=== PATIENT | male | born 1960 | race Caucasian/White ===

== ENCOUNTER 2016-11-04 09:06 | Inpatient (IN) ==
--- NOTE | 2016-11-04 09:06 | Pre-Sedation Evaluation ---
Pre-sedation evaluation - Pre-sedation checklist Date of procedure: 11/04/16 Procedure: [facility] Recent Vitals: as documented in EMR H&P (including ROS) documented in medical record: Yes Previous reaction to sedatives/anesthetics: No Dietary Status: unknown Airway Assessment: Patient can open mouth completely, TMJ function normal ASA Classification *see protocol: CLASS II-Mild systemic disease, E-EMERGENCY- Add to any of the above to indicate emergent Plan of Care: Pt appropriate candidate for procedure/moderate/conscious sedation , Risks/benefits of procedure/sedation discussed w/ patient/family, If not NPO; Risk of intake outweiged by necessity to perform procedure
--- NOTE | 2016-11-04 09:07 | Cardiology History & Physical ---
Date of Encounter: 11/04/16 Time of Encounter: 09:00 Assessment and Plan (1) STEMI (ST elevation myocardial infarction) Current Visit: Yes Status: Acute Emergent C to delineate any coronary disease amenable to PCI. Aspirin given, patient takes plavix. EF assessment will be completed. RF modification and aggressive medical therapyof patient's disease. The assessment and plan as outlined above was discussed with the patient and/or family members who expressed understanding and agreement. All questions were answered. Qualifiers: Involved coronary artery: other anterior wall coronary artery Qualified Code(s): I21.09 - ST elevation (STEMI) myocardial infarction involving other coronary artery of anterior wall (2) HTN (hypertension) Current Visit: Yes Status: Acute Continue home meds. The assessment and plan as outlined above was discussed with the patient and/or family members who expressed understanding and agreement. All questions were answered. Qualifiers: Hypertension type: essential hypertension Qualified Code(s): I10 - Essential (primary) hypertension (3) Nicotine dependence Current Visit: Yes Status: Acute The assessment and plan as outlined above was discussed with the patient and/or family members who expressed understanding and agreement. All questions were answered. Qualifiers: Nicotine product type: cigarettes Substance use status: uncomplicated Qualified Code(s): F17.210 - Nicotine dependence, cigarettes, uncomplicated History of Present Illness HPI: Mr. Pritchard is a 56 year old male with history of CAD s/p STEMI 06/2013 s/p PCI BMS LCx presents to office with intermittent chest pain x 1 week worse today. He was found to have anteroseptal current of injury and STEMI page was activated , he was emergently brought to the cardiac cath technician for definitive therapy. He has no diaphoresis, dyspnea or palpitations. Last plavix dose reportedly last night. Past Med Surg Social Fam HX - Past Medical History Medical history: GERD, myocardial infarction Psychiatric history: no psych history - Past Surgical History Surgical History: other (Bowel repair from trauma) - Social History Smoking Status: Former smoker Smokeless Tobacco Status: No Alcohol use: none Drug use: none Medications and Allergies Aspirin [Lo-Dose Aspirin EC] 81 mg PO DAILY 03/16/16 [History] Clopidogrel [Plavix] 75 mg PO DAILY 03/16/16 [History] Albuterol Sulfate [Proair Hfa] 2 puff IH Q4H PRN 11/04/16 [History] Atorvastatin [Lipitor] 40 mg PO HS 11/04/16 [History] Carvedilol 3.125 mg PO BID 11/04/16 [History] Famotidine [Pepcid] 40 mg PO HS 11/04/16 [History] Lisinopril [Zestril] 5 mg PO DAILY 11/04/16 [History] Nitroglycerin [Nitrostat] 0.4 mg SL AD PRN 11/04/16 [History] Ubidecarenone [Co Q10] 200 mg PO DAILY 11/04/16 [History] Allergies No Known Allergies Allergy (Verified 03/16/16 14:59) All Systems Review: A 10-system review of systems was performed and is negative for pertinent findings except as documented above in the HPI. - Constitutional Constitutional: no chills, no fever(s) - EENT Eyes: no blurred vision, no loss of vision Nose, mouth and throat: no bleeding gums, no epistaxis - Cardiovascular Cardiovascular: chest pain at rest, chest pain with exertion - Respiratory Respiratory: no hemoptysis, no wheezing - Gastrointestinal Gastrointestinal: no coffee ground emesis, no hematemesis - Genitourinary Genitourinary: no dysuria, no hematuria - Musculoskeletal Musculoskeletal: no arthralgias, no myalgias - Integumentary Integumentary: no erythema, no rash - Neurological Neurological: no focal weakness, no memory loss - Psychiatric Psychiatric: no anxiety, no depression - Hematological/Lymphatic Hematologic/Lymphatic: no easy bleeding, no easy bruising Physical Examination General: Conversant HEENT: Atraumatic, Normocephaly Neck: No JVD Cardiac: Reg Rate and Rhythm Lungs: Normal Breath Sounds Neuro: Alert and responsive Abdomen: Soft Skin: No rashes noted on visualized skin Musculoskeletal: No Chest Wall Tenderness Extremities: No Edema Results 11/04/16 09:43 - EKG Interpretation EKG results cardiology: personally reviewed, sinus rhythm (anterior current of injury)
[2016-11-04] MEDS ORDERED: *HR* Midazolam HCl 2 MG/2 ML VIAL ONE (09:08)
[2016-11-04] MEDS ORDERED: *HR* FentaNYL (PF) 100 MCG/2 ML VIAL ONE (09:09)
[2016-11-04] MEDS ORDERED: *HR* Heparin 5,000 UNIT/ML VIAL IVP PRN (09:52)
[2016-11-04] MEDS ORDERED: Ondansetron 4 MG/2 ML VIAL IVP PRN (09:52)
[2016-11-04] MEDS ORDERED: *HR* Heparin 5,000 UNIT/ML VIAL IVP ONE (09:52)
[2016-11-04] MEDS ORDERED: Heparin 25,000 UNIT/500 ML D5W 25,000 UNIT/500 ML MLS IVC ONE (09:58)
[2016-11-04] MEDS ORDERED: Nitroglycerin 0.4 MG TAB.SUBL SL PRN ×2 (09:59→10:13)
[2016-11-04 10:00] LABS: Basophils % 0.8 %; Eosinophils # 0.1 K/mcL (0.0-0.6); Eosinophils % 2.7 %; Hematocrit 36.4 % (37.5-50.1); Hemoglobin 12.2 g/dL (12.9-16.9); Immature Granulocytes % 0.2 % (0-4); Lymphocytes # 1.1 K/mcL (0.6-4.6); Lymphocytes % 22.5 %; Mean Corpuscular HGB Conc 33.5 g/dL (31.6-35.5); Mean Corpuscular Volume 86.5 fL (83.0-100.0); Mean Platelet Volume 9.6 fL (9.4-12.4); Monocytes # 0.4 K/mcL (0.0-1.3); Monocytes % 8.6 %; Neutrophils # 3.1 K/mcL (1.6-8.9); Platelet Count 191 K/mcL (140-400); Red Blood Count 4.21 M/mcL (4.19-5.50); Red Cell Distribution Width 11.9 % (11.5-14.5); Segmented Neutrophils % 65.2 %
[2016-11-04 10:06] LABS: INR 1.3; Prothrombin Time 14.2 Seconds (9.4-12.1)
[2016-11-04 10:19] LABS: BUN/Creatinine Ratio 27 (6-26); Blood Urea Nitrogen 20 mg/dL (8-26); Calcium 8.5 mg/dL (8.6-10.8); Carbon Dioxide 29 mEq/L (19-29); Chloride 103 mEq/L (98-109); Glucose 95 mg/dL (70-99); Osmolality,Calculated 282 (280-300); Potassium 3.6 mEq/L (3.5-4.5); Sodium 135 mEq/L (136-145); eGFR For African Americans > 60 (> 60); eGFR For Non-African Americans > 60 (> 60)
[2016-11-04 10:23] LABS: Hemoglobin A1C 5.3 %
[2016-11-04 10:34] LABS: Activated Partial Thrombo Time 239.7 Seconds (26.0-36.0)
[2016-11-04] MEDS ORDERED: *HR* Heparin 10,000 UNIT/10 ML VIAL ONE (10:35)
[2016-11-04] MEDS ORDERED: Heparin 1,000 UNITS/500 mL NS 500 ML ONE (10:35)
[2016-11-04] MEDS ORDERED: 0.9 % Sodium Chloride 1,000 ML ONE (10:35)
[2016-11-04] MEDS ORDERED: Nitroglycerin 1,000 MCG/10 ML VIAL IV ONE (10:35)
[2016-11-04] MEDS ORDERED: Verapamil 5 MG/2 ML VIAL ONE (10:35)
[2016-11-04 10:40] LABS: Heparin anti-factor XA UFH 0.7 IU/mL (0.30-0.70)
--- NOTE | 2016-11-04 10:43 | Cardiothoracic Consult Note ---
Date of Encounter: 11/04/16 Time of Encounter: 10:38 Assessment and Plan (1) STEMI (ST elevation myocardial infarction) Current Visit: No Status: Acute The patient is a 56-year-old hypertensive man with hypercholesterolemia and known CAD. The patient was taken to the cardiac catheterization lab from the cardiology of cirrhosis morning with the diagnosis of an acute anterior wall STEMI. The patient was found to have severe two-vessel CAD including an 80-90% LAD bifurcation lesion involving the D1 branch as well as a 90% proximal RCA lesion. He underwent balloon angioplasty of the LAD bifurcation lesion it was admitted for urgent CABG. Currently the patient is on a heparin drip and is pain -free. The Plavix will be stopped for 5 days prior to CABG. If the patient redevelops substernal chest pain which cannot be controlled, his CABG will be performed earlier. He has an operative mortality of 0.43%, permanent stroke 0.5% , deep sternal wound infection 0.2%, renal failure 0.6%, reoperation 3.4%. Tentatively the CABG is scheduled for November 10. The assessment and plan as outlined above was discussed with the patient and/or family members who expressed understanding and agreement. All questions were answered. Qualifiers: Involved coronary artery: other anterior wall coronary artery Qualified Code(s): I21.09 - ST elevation (STEMI) myocardial infarction involving other coronary artery of anterior wall - History of Present Illness Consult date: 11/04/16 Requesting physician: Babar Mota Consult reason: CABG evaluation. Chief complaint: Exertional substernal chest pain/back pain. History of present illness: Mr. Pritchard is a 56 year old hypertensive man with hypercholesterolemia and known CAD. The patient experienced a myocardial infarction in 2012 which required PCI and LCx stent placement. He did well until 1 week ago when he began experiencing exertional intrascapular back pain and precordial chest pain. 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 He had associated shortness of breath, but denied any diaphoresis, nausea , vomiting, or syncope. Last evening the patient had more severe precordial chest pain while resting at home. He had a previously scheduled appointment in the cardiology office and did not seek medical attention at that time. The patient arrived at the cardiology office this morning and related his recent symptoms, he underwent an ECG. This revealed anteroseptal ST segment elevation consistent with an acute STEMI. The patient was taken emergently to the cardiac catheterization lab. This study revealed severe two-vessel CAD. In particular the patient had an 80-90% LAD bifurcation lesion involving the D1 branch. In addition the patient had an 80-90% proximal RCA lesion. The LCx which had been previously stented had no flow-limiting lesions. The patient underwent balloon angioplasty of the bifurcation lesion to improve anterior blood flow and relieve his symptoms. He was admitted for urgent CABG. Past Med Surg Social Fam HX - Past Medical History Medical history: coronary artery disease, GERD, hyperlipidemia, hypertension, myocardial infarction Psychiatric history: no psych history - Past Surgical History Surgical History: other (Exploratory laparotomy with small bowel resection, tonsillectomy) - Social History Smoking Status: Former smoker Packs per day: 4ppd X 37yrs Smokeless Tobacco Status: No Alcohol use: none Drug use: none Occupational status: employed Current living situation: Home - Independent Activity Level: Independent ambulation Recent Out of Country Travel Within the Last 8 Weeks: No Exposure or Possible Exposure to Illness During Travel: No Medications and Allergies Aspirin [Lo-Dose Aspirin EC] 81 mg PO DAILY 03/16/16 [History] Clopidogrel [Plavix] 75 mg PO DAILY 03/16/16 [History] Albuterol Sulfate [Proair Hfa] 2 puff IH Q4H PRN 11/04/16 [History] Atorvastatin [Lipitor] 40 mg PO HS 11/04/16 [History] Carvedilol 3.125 mg PO BID 11/04/16 [History] Famotidine [Pepcid] 40 mg PO HS 11/04/16 [History] Lisinopril [Zestril] 5 mg PO DAILY 11/04/16 [History] Nitroglycerin [Nitrostat] 0.4 mg SL AD PRN 11/04/16 [History] Ubidecarenone [Co Q10] 200 mg PO DAILY 11/04/16 [History] Allergies No Known Allergies Allergy (Verified 03/16/16 14:59) All Systems Review: A 10-system review of systems was performed and is negative for pertinent findings except as documented above in the HPI. Physical Examination General: Conversant HEENT: Atraumatic, Normocephaly, Trachea midline Neck: No JVD, Normal carotid pulses Cardiac: Reg Rate and Rhythm, Normal S1 and S2, No Murmur Lungs: Normal Breath Sounds Neuro: Alert and responsive, No focal deficits noted Vascular: Normal capillary refill Abdomen: Soft Musculoskeletal: No Chest Wall Tenderness Extremities: No Clubbing, No Cyanosis, No Edema, Normal Pulses Results 11/04/16 09:43 11/04/16 09:43 Lab Results, Last 24 hours 11/04/16 11/04/16 11/04/16 09:43 09:43 09:43 WBC 4.8 Hgb 12.2 L Hct 36.4 L Plt Count 191 INR 1.3 APTT 239.7 H* Sodium 135 L Potassium 3.6 Chloride 103 Carbon Dioxide 29 BUN 20 Creatinine 0.73 Glucose 95 Calcium 8.5 L Consult Discharge Plan - Plan Referrals: Suman Huang, [employer] MANAGER [Primary Care Provider] -
--- NOTE | 2016-11-04 11:01 | Invasive Diagnostic Lab ---
Name: Rashi Pritchard Date of Study: 11/04/2016 Date: 1960 Ht: 172.7 cm /68.0 in Medical Record#: [id number] Age: 56 Wt: 70. kg / 154.32 lb Account/Order#: [id number] Gender: Male BSA: 1.83 Order #: [id number] Fluoro Dose: 718 mGy BMI: 23.46 Procedure Physician: Babar Mota MD, [facility] Referring MD: Referring MD: Procedures Performed: PCI of Acute MD LEFT HEART CATH Indications: STEMI Impressions: There is severe multivessel vessel coronary artery disease with proximal LAD/diagonal bifurcation and proximal RCA The left ventricle is normal and has normal contractility EF 55% Patient had successful PTCA in the proximal Diagonal. Recommendations: Optimal medical therapy of patient's disease. Aggressive risk factor modification. Suggest patient have Elective coronary artery bypass surgery. History/Risk Factors: CP Hypertension Prior MD Procedure Access obtained in the right Radial artery by percutaneous puncture Patient had successful PTCA in the proximal Diagonal. Complications: None, None Contrast: Isovue 190ml Closure Device: Mechanical Compression Hemodynamics: Pressures Site Systolic/ A Wave Diastolic/ V Wave End Diastolic/ Mean HR AO 93 47 64 66 AO 132 68 93 69 AO 129 70 95 67 AO 129 70 93 63 AO 136 86 109 61 LV 139 4 13 56 LV 137 3 57 65 AO 127 62 99 108 LV Ventriculography Ejection Method: LV Gram Ejection Fraction: 55% Wall Motion: FLORES Anterobasal Normal Anterolateral Normal Apical: Normal Inferoapical Normal Inferobasal Normal Coronary Dominance: right Lesion Findings/Interventions * Left Main Coronary Artery The LMCA is angiographically free of disease. * Left Anterior Descending There is a 70% stenosis in the Proximal LAD. There is a 95% stenosis in the 1st Diagonal. The lesion has a CLIFFORD flow of 2 and has no thrombus present. An intervention was performed on the 1st Diagonal with a final stenosis of 0%. There were no lesion complications. The final CLIFFORD flow was 3. Diagonal has early bifurcation with severe bifurcation disease. * Circumflex The Circumflex has mild disease with a patent stent The 1st Marginal is angiographically free of disease. * Right Coronary Artery There is a long 80% stenosis in the Mid RCA. The lesion has a CLIFFORD flow of 3. There is a 60% stenosis in the Distal RCA. Interventional Device(s) Vessel Segment Type Name Diameter (mm) Length (mm) 1st Diagonal Balloon Emerge Monorail 2 15 Updated by RT Laura(R) on 11/04/2016 9:58:43 AM Babar Mota MD, FACC electronically signed on 11/04/2016 10:55:17 AM with status of Final
--- NOTE | 2016-11-04 11:31 | Invasive Diagnostic Lab Proc ---
Name: Rashi Pritchard Date of Study: 11/04/2016 Date: 1960 Ht: 68.0in Medical Record#: [id number] Age: 56 Wt: 164.32lb Gender: Male BSA: 1.88 Order #: [id number] BMI: 24.98 Physicians Procedure Physician: [facility] M[facility] Referring MD: Referring MD: Staff Name Position Time In Iliana Hines RT (R) Monitor 09:14 AM Mable Stratton RN Oil Producer 09:14 AM Deborah Ramirez RN Oil Producer 09:14 AM Beatriz Vang RT (R) Scrub 09:14 AM Indications Indication STEMI Procedures Performed Procedure PRQ CARD REVASC UT 1 VSL L HRT ARTERY/VENTRICLE ANGIO Pre-Procedure Checklist Informed consent is complete signed and on chart. H\\T\\P is on chart. ID band is on and ID verified with patient. Patient NPO for procedure The procedure was described for the patient and questions were answered. Blood Pressure: 198/104 ECG is on chart. Rhythm: NSR Plan of Care Patient will tolerate the procedure without complications. Adequate level of comfort will be maintained. Hemodynamics will remain stable Patient will recover from procedure without complications. Respiratory function will be maintained. Cardiac rhythm will remain stable. Patient temperature will be maintained. Patient and/or family have verbalized understanding of the procedure. Patient Education Chief Complaint/Reason for Test: Cardiac Cath Developmental Category: Adult (18-64 years) Developmentally Appropriate for Age: Yes Learning Barriers: None Education Needs: Procedure Education Method: Verbal Information Taught: Cardiac Cath Educational Evaluation: Able to repeat information Intravenous Access Time IV Size Location DC'd Fluid/Drip Rate Units RN 09:08 AM 20g 1 07/08" Patent On Arrival Lt Arm 0.9NaCl 25 ml/hr Allergies No Known Allergies NKA Vital Signs Time BP (mmHg) HR (bpm) O2 Sat. RR (bpm) LOC 09:15 AM 198 / 104 64 99 % 16 4 = Oriented but drowsy 09:14 AM 198 / 104 64 100 % 15 09:18 AM 132 / 72 67 99 % 15 09:24 AM 150 / 81 66 99 % 19 09:28 AM 156 / 74 62 100 % 13 09:33 AM 147 / 80 63 99 % 12 09:39 AM 145 / 79 61 99 % 14 09:43 AM 150 / 65 62 99 % 14 09:48 AM 156 / 82 57 100 % 23 10:00 AM 136 / 78 49 100 % 16 5 = Fully awake and oriented or at pre-proc level 10:15 AM 161 / 81 49 99 % 12 5 = Fully awake and oriented or at pre-proc level 10:30 AM 167 / 95 53 100 % 18 5 = Fully awake and oriented or at pre-proc level 10:45 AM 157 / 83 47 100 % 18 5 = Fully awake and oriented or at pre-proc level 11:00 AM 154 / 58 58 99 % 18 5 = Fully awake and oriented or at pre-proc level 11:15 AM 166 / 88 53 99 % 18 5 = Fully awake and oriented or at pre-proc level Procedural Medications Time Medication Dose Units Method Given By 09:14 AM Oxygen 2 L/min nasal cannula Deborah Ramirez RN 09:15 AM Versed 2 mg Intravenous Deborah Ramirez RN 09:15 AM Fentanyl 50 mcg Intravenous Deborah Ramirez RN 09:15 AM Lidocaine 2% 0.5 ml Subcutaneous Babar Mota MD, FACC 09:16 AM Heparin 4000 units Nitroglycerin 200 mcg Verapamil 2.5 mg Intraarterial Babar Mota MD, FACC 09:30 AM Nitroglycerin 200 mcg Intracoronary Babar Mota MD 09:38 AM Nitroglycerin 200 mcg Intracoronary Babar oMta MD 10:15 AM Heparin 888 units/hr Intravenous Deborah Ramirez RN Gorge Score Preprocedure Postprocedure Activity 2- Moves 4 extremities sustained head lift Activity 2- Moves 4 extremities sustained head lift Circulation 2- SBP +/= 20 points of pre-anesthetic level Circulation 2- SBP +/= 20 points of pre-anesthetic level Consciousness 2- Awake and alert oriented x 3 Consciousness 2- Awake and alert oriented x 3 O2 Saturation 2- Able to maintain O2 satruation of 92% on room air O2 Saturation 2- Able to maintain O2 satruation of 92% on room air Respiratory 2- Able to deep breathe and cough well Respiratory 2- Able to deep breathe and cough well Total Score 10 Total Score 10 Contrast Agent: Isovue Diagnostic Contrast: 190 ml Total Contrast: 190 ml Fluoro Dose: 718 mGy Activated Clotting Time Time Seconds to Clot 09:36 AM 400 Procedure Log Time Note Enter By 09:07 AM Pt arrived to wheelabrator operator 2 at 09:07 scoates 09:09 AM CathStat 09:09 AM Case Start 09:11 AM Vitals capture started with the following parameters, Patient=Adult, Interval=5 min, Initial Tvxikqkq=405 mmHg, Deflation Rate=5 mmHg, Cuff placed on Left Arm 09:11 AM Recorded ECG: HR=60 Condition=Condition 1 09:13 AM Vitals capture started with the following parameters, Patient=Adult, Interval=5 min, Initial Oesfzgyi=686 mmHg, Deflation Rate=5 mmHg, Cuff placed on Left Arm 09:14 AM Iliana Hines RT (R) Position: Monitor Time in: 09:14 scoates 09:14 AM Mable Stratton RN Position: Oil Producer Time in: 09:14 scoates 09:14 AM Deborah Ramirez RN Position: Oil Producer Time in: 09:14 scoates 09:14 AM Beatriz Vang RT (R) Position: Scrub Time in: 09:14 scoates 09:14 AM Patient charges- Angio tray pack, Navilyst 3mm J, Pulse Oximetry and ACIST tubing and transducer scoates 09:14 AM HR=64 bpm, VFPM=865/104 mmhg, TvP0=453.0 %, Resp=15 B/min 09:14 AM Case Delayed No scoates 09:14 AM Hair removed from procedure site in holding area using clippers. Right wrist prepped with Chloraprep by Mable Stratton RN, safety strap applied then patient was draped. Skin intact. scoates 09:14 AM Physican paged/called 09:14. scoates 09:14 AM Physician arrived :14 scoates 09:14 AM Meet and greet completed scoates 09:14 AM Procedure start :14 scoates 09:15 AM Time: 09:14 Oxygen on at 2 L/min per nasal cannula by Deborah Ramirez RN scoates 09:15 AM Time: :15 Versed 2 mg Intravenous Given by Deborah Ramirez RN scoates 09:15 AM Time: 09:15 Fentanyl 50 mcg Intravenous Given by Deborah Ramirez RN scoates 09:15 AM Time: 09:15 Patient comfortable and pain free: Yes scoates 09:15 AM Time: 09:15LOC: 4 = Oriented but drowsy scoates 09:15 AM Time out performed according to hospital policy scoates 09:15 AM Time: 09:15 0.5 ml Lidocaine 2% to right radial Subcutaneous Given by Babar Mota MD, [facility] scoates 09:15 AM Pressure channel 1 zeroed. 09:16 AM Access obtained by percutaneous puncture. 6Fr 10cm Terumo Glidesheath sheath placed in right Radial artery. [id number] scoates 09:16 AM Time: 09:16 Patient given 4,000 units Heparin, 200 mcg Nitroglycerin, and 2.5 mg Verapamil Intraarterial by Babar Mota MD, [facility] scoates 09:16 AM 0.035 145cm Navilyst 3mmJ wire [id number] scoates 09:17 AM Wire removed [email or web address] 09:17 AM 0.035 145cm VSI Pako-Torque wire [id number] [email or web address] 09:17 AM 6Fr EBU 3.0 Medtronic guide catheter was used to cannulate the PCI vessel successfully. reused? No [email or web address] 09:18 AM Inflation device was opened. [email or web address] 09:18 AM .014 PT Graphix 182cm guide wire across target lesion- successful. reused? No [email or web address] 09:18 AM Recorded Pressure: Ao, HR=66, Condition=Condition 1 (Aorta) Ao 93/47/64 09:18 AM LCA angiography performed in multiple views. [email or web address] 09:18 AM HR=67 bpm, VVOI=740/72 mmhg, SpO2=99.0 %, Resp=15 B/min 09:19 AM Recorded Pressure: Ao, HR=69, Condition=Condition 1 (Aorta) Ao 132/68/93 09:20 AM .014 Prowater 180cm guide wire across target lesion- successful. reused? No [email or web address] 09:23 AM Lesion found in 1st Diagonal. Pre Stenosis: 90 Pre CLIFFORD Flow: 2: Partial Flow/Perfusion (> 1 but < 3) [email or web address] 09:23 AM 2.0 mm x 15 mm Emerge Monorail balloon across target lesion- successful. reused? No [email or web address] 09:24 AM HR=66 bpm, QAQN=625/81 mmhg, SpO2=99.0 %, Resp=19 B/min, Comment=NSR 09:26 AM Balloon inflated @ 6 leighton for 6 seconds [email or web address] 09:28 AM HR=62 bpm, NYBE=455/74 mmhg, XcG3=307.0 %, Resp=13 B/min 09:29 AM Balloon catheter removed intact. [email or web address] 09:30 AM Time: 09:30 Nitroglycerin 200 mcg Intracoronary Given by Babar Mota MD [email or web address] 09:31 AM Recorded Pressure: Ao, HR=67, Condition=Condition 1 (Aorta) Ao 129/70/95 09:33 AM Balloon re-inserted OTW. [email or web address] 09:33 AM HR=63 bpm, FUUO=847/80 mmhg, SpO2=99.0 %, Resp=12 B/min, Comment=NSR 09:35 AM Balloon inflated @ 6 leighton for 9 seconds [email or web address] 09:36 AM Recorded ECG: HR=61 Condition=Condition 1 09:38 AM Time: 09:38 Nitroglycerin 200 mcg Intracoronary Given by Babar Mota MD [email or web address] 09:38 AM Balloon catheter removed intact. [email or web address] 09:38 AM Guide wire removed intact. [email or web address] 09:38 AM Guide wire removed intact. [email or web address] 09:39 AM Recorded Pressure: Ao, HR=63, Condition=Condition 1 (Aorta) Ao 129/70/93 09:39 AM HR=61 bpm, RIZM=918/79 mmhg, SpO2=99.0 %, Resp=14 B/min, Comment=NSR 09:39 AM Guide catheter removed intact. [email or web address] 09:40 AM 5Fr FR 4 catheter inserted over the wire DN [email or web address] 09:41 AM RCA angiography performed in multiple views. [email or web address] 09:42 AM Recorded Pressure: Ao, HR=61, Condition=Condition 1 (Aorta) Ao 136/86/109 09:42 AM Coronary Dominance: right [email or web address] 09:42 AM Catheter removed [email or web address] 09:42 AM 5Fr Pigtail catheter inserted over the wire DN [email or web address] 09:43 AM Lesion found in Mid RCA. Pre Stenosis: 80 Pre CLIFFORD Flow: 2: Partial Flow/Perfusion (> 1 but < 3) [email or web address] 09:43 AM Catheter selectively placed in left ventricle [email or web address] 09:43 AM HR=62 bpm, GQPW=449/65 mmhg, SpO2=99.0 %, Resp=14 B/min, Comment=NSR 09:44 AM Recorded Pressure: LV, HR=56, Condition=Condition 1 (Left Ventricle) LV 139/4/13 09:44 AM Bolus angiogram of left Ventricle complete: 10 ml/sec for a total of 30 mls [email or web address] 09:44 AM Recorded Pressure: LV, Ao, HR=73, Condition=Condition 1 (Left Ventricle) LV 137/3/57, (Aorta) Ao 127/62/99 09:45 AM Catheter removed [email or web address] 09:45 AM Procedure completed at 09:45 [email or web address] 09:46 AM Sign out completed: Radiation Dose 717.98 mGy Fluoro Time: 8.2 Isovue 370 - 200ml contrast 190 ml given by Babar Mota MD, FACC. Complications: NoneCardiac Rehab Consult needed: YesConfirmed administered medications: Yes [email or web address] 09:46 AM Isovue 370 - 200ml,1 Bottle(s) used. [email or web address] 09:46 AM 13 ml air in Vasc Band. [email or web address] 09:47 AM Post ECG NSR [email or web address] 09:47 AM Post Blood Pressure 150/65 [email or web address] 09:48 AM Information taught PCI and Cardiac Cath [email or web address] 09:48 AM Education needs Procedure, Plan of Care, and Disease Process [email or web address] 09:48 AM Learning barriers :None [email or web address] 09:48 AM HR=57 bpm, GJUY=870/82 mmhg, SzT5=382.0 %, Resp=23 B/min, Comment=NSR 09:48 AM Education Methods Verbal [email or web address] 09:48 AM Education evaluation Able to repeat information [email or web address] 09:49 AM Site status No bleeding/hematoma - Rt Wrist as reported by Beatriz Vang RT (R) at 09:49 [email or web address] 09:49 AM Delay to floor Bed availability [email or web address] 09:49 AM Family placed in Not available. [email or web address] 09:49 AM Complications: None [email or web address] 09:49 AM Fluoro Time: 8.2 [email or web address] 09:49 AM Isovue 370 - 200ml contrast 190 ml given by Babar Mota MD, FACC. [email or web address] 09:49 AM Radiation Dose 717.98 mGy [email or web address] 09:56 AM Report given to Charity MEREDITH Pt taken to Holding room Room #4. 09:56 [email or web address] 09:56 AM Patient out of room: 09:56 [email or web address] 10:15 AM Time: 10:15 Heparin 888 units/hr Intravenous Given by Deborah Ramirez RN 10:25 AM pt checked into HR 4, on [place] [email or web address] 10:[address] Garcia at bedside [email or web address] 10:59 AM Lab called with PTT results of 239.7 decreased rate by 3u/kg/hr as ordered justice 11:22 AM Report given to Cindy MEREDITH Pt taken to ICU Room #2. 11:22 [email or web address] 11:22 AM Patient out of room: 11:22 [email or web address] Complications Complication None None Hemodynamics Pressures Site Systolic/A Wave Diastolic/V Wave Mean AO 93 47 64 AO 132 68 93 AO 129 70 95 AO 129 70 93 AO 136 86 109 LV 139 4 13 LV 137 3 57 AO 127 62 99 Post Procedure Information Blood Pressure: 150/65 mmHg Rhythm: NSR Post procedural instructions were given Surgery consult for CABG Closure Device Time Device Success/Fail 11/04/2016 8:45:00 AM Mechanical Compression Successful Site Checks Time Location Status Staff Sheath In? Note 09:49 AM Rt Wrist No bleeding/hematoma Beatriz Vang RT (R) 10:00 AM Rt Wrist No bleeding/ No Hematoma Deborah Ramirez RN 10:15 AM Rt Wrist No bleeding/ No Hematoma Deborah Ramirez RN 10:30 AM Rt Wrist No bleeding/ No Hematoma Brent Walker RN Vasc band in place 10:45 AM Rt Wrist No bleeding/ No Hematoma Brent Walker RN 2 ml air deflated. 11:00 AM Rt Wrist No bleeding/ No Hematoma Brent Walker RN 11:15 AM Rt Wrist No bleeding/ No Hematoma Brent Walker RN 3 ml air deflated. Pulses Time Site Pre-Procedure Post-Procedure Note 11/04/2016 9:07:00 AM Bilateral radial 2+ 2+ 11/04/2016 9:07:00 AM Bilateral DP \\T\\ PT 1+ 1+ 11/04/2016 10:00:00 AM Rt Radial 2+ 11/04/2016 10:15:00 AM Rt Radial 2+ 11/04/2016 10:45:00 AM Rt Radial 2+ 11/04/2016 11:15:00 AM Rt Radial 2+ Updated by Marquita Orellana RN on 11/04/2016 11:23:27 AM electronically signed on 11/04/2016 11:26:19 AM with status of Final
[2016-11-04 12:18] LABS: Chol/HDL Ratio 2.9 (0-4.9); HDL Cholesterol 28 mg/dL (40-59); LDL Cholesterol,Calculated 46 mg/dL (0-99); Triglycerides 31 mg/dL (< 150)
[2016-11-04 12:19] LABS: Cholesterol 80 mg/dL (< 200)
[2016-11-04] MEDS: Heparin 25,000 UNIT/500 ML D5W 25,000 UNIT/500 ML MLS IVC SCH (12:25)
--- NOTE | 2016-11-04 14:58 | Electrocardiograph Report ---
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
[2016-11-04] MEDS: Isosorbide MONOnitrate (24 HR) 30 MG TAB.ER.24H PO SCH (18:06)
[2016-11-04] MEDS ORDERED: NON-FORMULARY MEDICATION 1 EACH EACH (Famotidine [Pepcid] 40 MG) PO SCH (21:00)
[2016-11-04] MEDS ORDERED: Famotidine 20 MG TABLET PO SCH (21:00)
[2016-11-04] MEDS ORDERED: NON-FORMULARY MEDICATION 1 EACH EACH (Carvedilol [Carvedilol] 3.125 MG) PO SCH ×2 (21:00)
--- NOTE | 2016-11-04 23:25 | ECHO - Doppler Report ---
Echocardiogram Name: Rashi Pritchard Date of Study: 11/04/2016 Date: 1960 Ht: 68.0 in Medical Record#: [id number] Age: 56 Wt: 167.0 lb Gender: Male BSA: 1.89 Order #: [id number] Location: [facility] Room #: IC2 Reading Physician: Sukhi Chavez MD, [facility] Technical Support Technician: Galina Marshall Ordering Physician: Babar Mota MD, [facility] Primary Physician: Suman Huang CNP Indications: ACS Impressions: LVEF 55-60%. There is hypokinesis of the basal-mid inferolateral wall and basal-mid anterolateral wall. Mild asymmetric LV basal septal hypertrophy. No evidence of LVOT obstruction. Normal right ventricular size and function. No significant valvular dysfunction. Unable to estimate RVSP due to lack of TR jet. Left Ventricular Wall Motion: Rest Echo Findings The mid anterior lateral, basal anterior lateral, mid inferior lateral and basal inferior lateral brian were hypokinetic. All other wall segments showed normal motion. Findings: Study Quality * Technically adequate exam. ECG Findings * Normal sinus rhythm. Left Ventricle * LVEF 55-60%. There is hypokinesis of the basal-mid inferolateral wall and basal-mid anterolateral wall. * Mild asymmetric LV basal septal hypertrophy. No evidence of LVOT obstruction. * Indeterminate diastolic function. Right Ventricle * Normal right ventricular size and function. Left Atrium * Normal left atrial size. Right Atrium * Normal right atrial size. Aorta * Normally sized aortic root. Pericardium * There is no pericardial effusion present. IVC * Normal IVC dimensions and inspiratory collapse. Aortic Valve * Aortic valve not well visualized. * No aortic stenosis. * No aortic regurgitation. Mitral Valve * Mild-moderately thickened/calcified mitral valve leaflets. * No mitral stenosis. * Trace mitral regurgitation. Tricuspid Valve * Normal tricuspid valve structure. * No tricuspid stenosis. * Trace tricuspid regurgitation. * Unable to estimate RVSP due to lack of TR jet. Pulmonic Valve * Pulmonic valve not well visualized. * No pulmonic stenosis. * No pulmonic regurgitation. History Hypertension Hypercholesteremia Years 37 Packs 4 History of CAD/PTCA Myocardial Infarction 06/17/2013 a Previous Echo was performed. Measurements: BP: 128/ 74 2D Normal Values RVIDd: 2.80 cm IVSd: 1.30 cm 0.6 - 1.0 cm LVIDd: 4.20 cm 3.7 - 5.6 cm LVPWd: .90 cm 0.6 - 1.1 cm LVIDs: 2.80 cm 1.5 - 3.6 cm AO: 3.20 cm < 4.0 cm LA volume: 48 Mitral Valve Peak E:.86 m/sec Peak A:.83 m/sec E/A Ratio:1 Updated by Sukhi Chavez MD, [facility] on 11/04/2016 11:15:52 PM electronically signed on 11/04/2016 11:19:08 PM with status of Final Wall Motion Lopez: 1=Normal, 2=Hypokinesis, 3=Akinesis, 4=Dyskinesis, 5=Aneurysmal, 6=Hyperkinetic, X=Not Visualized (Blank)=Missing
[2016-11-05] MEDS: Isosorbide MONOnitrate (24 HR) 30 MG TAB.ER.24H PO SCH (08:11)
--- NOTE | 2016-11-05 08:33 | Cardiothoracic Progress Note ---
Date of Encounter: 11/05/16 Time of Encounter: 08:31 - Assessment and plan (1) STEMI (ST elevation myocardial infarction) Current Visit: No Status: Acute The patient has remained hemodynamic stable. He has no chest pain. Tentatively the CABG is scheduled for Thursday, November 10, 2016 once the antiplatelet effect from the Plavix has diminished. The assessment and plan as outlined above was discussed with the patient and/or family members who expressed understanding and agreement. All questions were answered. Qualifiers: Involved coronary artery: other anterior wall coronary artery Qualified Code(s): I21.09 - ST elevation (STEMI) myocardial infarction involving other coronary artery of anterior wall - Subjective Interval history: The patient is resting comfortably in his hospital bed. He has no complaints of chest pain. Vital Signs, Last 4 Hours Temp Pulse Resp BP Pulse Ox 11/05/16 06:00 73 12 139/83 99 11/05/16 05:00 63 12 131/78 99 11/05/16 04:53 97.9 F Oxgyen Flow Rate Oxygen Flow Rate (LPM) 2 Weight 11/03/16 11/04/16 11/05/16 23:59 23:59 23:59 Weight 76 kg - Physical Examination General: Conversant, No Apparent Distress Neck: No JVD, Normal carotid pulses Cardiac: Reg Rate and Rhythm, Normal S1 and S2, No Murmur Lungs: Normal Breath Sounds, No Wheeze, Rales, Rhonchi Neuro: Alert and responsive, No focal deficits noted Vascular: Normal capillary refill Musculoskeletal: No Chest Wall Tenderness Extremities: No Clubbing, No Cyanosis, No Edema - Labs 11/04/16 09:43 11/04/16 09:43 Lab Results, Last 24 hours 11/04/16 11/04/16 11/04/16 09:43 09:43 09:43 WBC 4.8 Hgb 12.2 L Hct 36.4 L Plt Count 191 INR 1.3 APTT 239.7 H* Sodium 135 L Potassium 3.6 Chloride 103 Carbon Dioxide 29 BUN 20 Creatinine 0.73 Glucose 95 Calcium 8.5 L 11/04/16 11/04/16 11/05/16 17:09 23:55 06:24 WBC Hgb Hct Plt Count INR APTT 49.6 H D 59.5 H 63.0 H Sodium Potassium Chloride Carbon Dioxide BUN Creatinine Glucose Calcium - Imaging Chest Xray: image reviewed (Normal cardiac size. Bilateral scattered granulomas , unchanged. No active pulmonary disease.) Consult Discharge Plan - Plan Referrals: Suman Huang, [employer] TECHNICIAN [Primary Care Provider] -
[2016-11-05] MEDS ORDERED: Aspirin 81 MG TAB.CHEW PO SCH (09:00)
--- NOTE | 2016-11-05 09:20 | Cardiology Progress Note ---
Date of Encounter: 11/05/16 Time of Encounter: : Assessment and Plan (1) STEMI (ST elevation myocardial infarction) Current Visit: No Status: Acute LHC yesterday revealed severe multivessel CAD with proximal LAD diag bifurcation and proximal RCA. EF 55%, successful PTCA prox diag. C T surgery was consulted. Plan for CABG Wednesday. Pt remains chest pain free s/p LHC, denies any shoulder blade discomfort. Echo EF 55-60%. Hypokinesis of basal-mid inferolateral wall and basal-mid anterolateral wall. Mild asymmetric LV basal septal hypertrophy. No significant valvular dysfunction. ASA, Statin, BB, NATALIE-I, nitrates. Plan to transfer out of ICU today to a regular floor. Qualifiers: Involved coronary artery: other anterior wall coronary artery Qualified Code(s): I21.09 - ST elevation (STEMI) myocardial infarction involving other coronary artery of anterior wall (2) HTN (hypertension) Current Visit: No Status: Acute Controlled on current meds. Qualifiers: Hypertension type: essential hypertension Qualified Code(s): I10 - Essential (primary) hypertension Discussion w patient/family: The assessment and plan as outlined above was discussed with the patient and/or family members who expressed understanding and agreement. All questions were answered. Thank you for involving us in the care of your patient. Please call with any questions. I will discuss all the above with Dr. Miles and make changes as necessary. Subjective Principal diagnosis: STEMI Interval history: S/P LHC yesterday revealed severe multivessel CAD with proximal LAD diag bifurcation and proximal RCA. EF 55%, successful PTCA prox diag. CT surgery was consulted. Plan for CABG Wednesday. Pt remains chest pain free s/p LHC, denies any shoulder blade discomfort. No acute complaints this AM. Echo EF 55-60%. Hypokinesis of basal-mid inferolateral wall and basal-mid anterolateral wall. Mild asymmetric LV basal septal hypertrophy. No significant valvular dysfunction. Objective Vital Signs, Last 4 Hours Temp Pulse Resp BP Pulse Ox 11/05/16 08:25 97.8 F 11/05/16 06:00 73 12 139/83 99 Vital Signs Temp Pulse Resp BP Pulse Ox 11/05/16 08:25 97.8 F 11/05/16 06:00 73 12 139/83 99 11/05/16 05:00 63 12 131/78 99 11/05/16 04:53 97.9 F 11/05/16 04:00 54 12 125/79 98 11/05/16 03:51 60 11/05/16 03:00 57 12 119/60 98 11/05/16 02:00 58 12 123/60 99 11/05/16 01:00 79 12 130/75 99 11/05/16 00:25 97.5 F L 11/05/16 00:11 65 11/05/16 00:00 65 14 140/76 97 11/04/16 23:00 81 16 137/73 97 11/04/16 22:00 81 16 142/81 97 11/04/16 21:00 63 14 118/63 97 11/04/16 20:29 97.6 F 11/04/16 20:00 66 15 139/65 97 11/04/16 19:00 65 16 123/60 97 11/04/16 18:11 98.2 F 75 12 128/74 98 11/04/16 17:50 79 12 128/74 98 11/04/16 16:52 66 12 155/105 98 11/04/16 16:12 99 11/04/16 15:57 58 11/04/16 14:00 68 10 171/94 100 11/04/16 13:15 66 10 174/106 99 11/04/16 12:45 78 10 160/98 98 11/04/16 12:30 68 10 197/135 99 11/04/16 12:15 61 12 171/89 99 11/04/16 11:54 58 10 150/88 99 11/04/16 11:47 97.5 F L Intake and Output 11/04/16 11/05/16 11/05/16 23:59 07:59 15:59 Intake Total 400 / 400 0 / 0 400 / 400 Output Total 800 / 800 600 / 600 Balance -400 / -400 -600 / -600 400 / 400 Intake: IV Fluids 400 / 400 Heparin 25,000 UNIT/500 400 / 400 ML D5W 25,000 unit In 500 ml @ 12 UNIT/KG/HR 18. 507 mls/hr IVC .Q24H LIYA Rx#:[id number] Oral 400 / 400 0 / 0 Output: Urine 800 / 800 600 / 600 Other: Meal Dinner Percent of Meal Consumed 100% Blood Glucose* 86 General: Conversant, No Apparent Distress HEENT: Atraumatic, Normocephaly, Mucus Membranes Moist Neck: No JVD, Normal carotid pulses Cardiac: Reg Rate and Rhythm, Normal S1 and S2, No Murmur Lungs: Normal Breath Sounds, No Wheeze, Rales, Rhonchi Neuro: Alert and responsive, No focal deficits noted Abdomen: Soft, Non-Tender Skin: Other (right radial access site healing well. No bleeding, hematoma or ecchymosis noted.) Musculoskeletal: No Chest Wall Tenderness Extremities: No Clubbing, No Cyanosis, No Edema, Normal Pulses Results 11/04/16 09:43 11/04/16 09:43 Lab Results 11/04/16 11/04/16 11/04/16 09:43 09:43 09:43 WBC 4.8 Hgb 12.2 L Hct 36.4 L Plt Count 191 INR 1.3 APTT 239.7 H* Sodium 135 L Potassium 3.6 Chloride 103 Carbon Dioxide 29 BUN 20 Creatinine 0.73 Glucose 95 Calcium 8.5 L 11/04/16 11/04/16 11/05/16 17:09 23:55 06:24 WBC Hgb Hct Plt Count INR APTT 49.6 H D 59.5 H 63.0 H Sodium Potassium Chloride Carbon Dioxide BUN Creatinine Glucose Calcium Short CBC 11/04/16 Range/Units 09:43 WBC 4.8 (4.3-11.1) K/mcL Hgb 12.2 L (12.9-16.9) g/dL Hct 36.4 L (37.5-50.1) % Plt Count 191 (140-400) K/mcL Neutrophils # 3.1 (1.6-8.9) K/mcL BMP 11/04/16 Range/Units 09:43 Sodium 135 L (136-145) mEq/L Potassium 3.6 (3.5-4.5) mEq/L Chloride 103 (98-109) mEq/L Carbon Dioxide 29 (19-29) mEq/L BUN 20 (8-26) mg/dL Creatinine 0.73 (0.72-1.25) mg/dL Glucose 95 (70-99) mg/dL Calcium 8.5 L (8.6-10.8) mg/dL Impressions Chest X-Ray 11/04/16 10:56 IMPRESSION: No acute cardiopulmonary process. D/ / 11/04/2016 11:19:50 Tamia Hsu MD / Nohelia Alarcon Interpreting Provider: Tamia Hsu MD Active Medications Acetaminophen (Tylenol) 500 mg PO Q6HR PRN PRN Reason: Mild Pain Stop: 05/06/17 09:53 Albuterol Sulfate (Albuterol Inhaler) 2 puff IH Q4H PRN PRN Reason: Shortness Of Breath Stop: 05/06/17 10:00 Aspirin (Aspirin) 81 mg PO DAILY LIYA Stop: 05/07/17 09:01 Last Admin: 11/05/16 08:08 Dose: 81 mg Atorvastatin Calcium (Lipitor) 40 mg PO HS LIYA Stop: 05/06/17 21:01 Last Admin: 11/04/16 20:13 Dose: 40 mg Carvedilol (Coreg) 3.125 mg PO BIDWM LIYA PRN Reason: Protocol Stop: 05/06/17 17:01 Last Admin: 11/05/16 08:08 Dose: 3.125 mg Chlorhexidine Gluconate (Chlorhexidine Rinse) 15 ml MM BID LIYA Stop: 11/10/16 09:01 Famotidine (Pepcid) 40 mg PO HS LIYA Stop: 05/06/17 21:01 Last Admin: 11/04/16 20:13 Dose: 40 mg Heparin Sodium (Porcine) (Heparin) 2,000 unit IVP Q6H PRN PRN Reason: SEE COMMENTS Stop: 05/06/17 09:53 Hydralazine HCl (Hydralazine) 10 mg IVP Q6HR PRN PRN Reason: Hypertension Stop: 05/06/17 17:03 Heparin Sodium/Dextrose (Heparin 25,000 Unit/500 Ml D5w) 25,000 unit in 500 mls @ 18.507 mls/hr IVC .Q24H LIYA; 12 UNIT/KG/HR PRN Reason: Protocol Stop: 05/06/17 10:01 Last Titration: 11/05/16 08:18 Dose: 12 unit/kg/hr, 18.507 mls/hr Cefazolin Sodium (Ancef Premix 2,000 Mg/100 Ml) 2,000 mg in 100 mls @ 200 mls/ hr IVPB PREOP ONE PRN Reason: Protocol Stop: 11/10/16 07:29 Isosorbide Mononitrate (Imdur) 30 mg PO DAILY LIYA Stop: 05/06/17 17:01 Last Admin: 11/05/16 08:11 Dose: 30 mg Lisinopril (Zestril) 5 mg PO DAILY LIYA PRN Reason: Protocol Stop: 05/07/17 09:01 Last Admin: 11/05/16 08:10 Dose: 5 mg Nitroglycerin (Nitroglycerin) 0.4 mg SL AD PRN PRN Reason: Chest Pain Stop: 05/06/17 10:00 Ondansetron HCl (Zofran) 4 mg IVP Q8HR PRN PRN Reason: Nausea And Vomiting Stop: 05/06/17 09:53 - Imaging and Cardiology Echo: report reviewed Cardiac cath: report reviewed - EKG Interpretation EKG results cardiology: other (24 hour tele AVG HR 67, SR, no significant pauses or arrhythmias.) Consult Discharge Plan - Plan Referrals: Suman Huang, PROGRAM ADMIN [Primary Care Provider] -
[2016-11-05] MEDS: Heparin 25,000 UNIT/500 ML D5W 25,000 UNIT/500 ML MLS IVC SCH ×2 (14:34→18:08)
[2016-11-05] MEDS ORDERED: Ondansetron 4 MG/2 ML VIAL IVP PRN (16:52)
[2016-11-05] MEDS ORDERED: Nitroglycerin 0.4 MG TAB.SUBL SL PRN (16:52)
--- NOTE | 2016-11-05 17:56 | Carotid Imaging Report ---
Carotid Duplex Patient Name:Rashi Pritchard Order Number:[id number] Procedure Date:11/04/2016 Date:1960Age:56 yrs Gender:Male Lt BP:128 / 74 mmHg Rt.BP:128 / 74 mmHgHeart Rate: [facility] Room #: IC2 Cribbing Setter:Galina Marshall Referring MD:Addie Garcia MD church history professor:Suman Huang, FUR LINER Reading MD:Willard Butler MD Primary Indications:Carotid bruit evaluation Risk Factors Yes/No Hypertension Hypercholesterolemia Hx of CAD/PTCA Smoker Previous Impressions: Findings: Bilateral bifurcation has a severe, 60-79% stenosis. Recommend follow-up evaluation in 12 months Findings Carotid Duplex: Right: There is nonstenotic plaque in the right proximal common carotid artery. There is smooth heterogeneous plaque. There is nonstenotic plaque in the right mid common carotid artery. There is smooth heterogeneous plaque. There is nonstenotic plaque in the right distal common carotid artery. There is irregular heterogeneous plaque. There is 60-79% stenosis in the right bifurcation. There is highly irregular calcified plaque. There is 40-59% stenosis in the right proximal internal carotid artery. There is irregular heterogeneous plaque. There is nonstenotic plaque in the right mid internal carotid artery. The right eca has turbulent flow with plaque. There is smooth heterogeneous plaque. Left: There is nonstenotic plaque in the left proximal common carotid artery. There is smooth heterogeneous plaque. There is nonstenotic plaque in the left mid common carotid artery. There is irregular heterogeneous plaque. There is nonstenotic plaque in the left distal common carotid artery. There is highly irregular heterogeneous plaque. There is 60-79% stenosis in the left bifurcation. There is highly irregular calcified plaque. There is 40-59% stenosis in the left proximal internal carotid artery. There is smooth heterogeneous plaque. The left eca has turbulent flow with plaque. Prior Study: No prior study available for comparison. Carotid Results Right PSV EDV Assessment Proximal CCA 107 15 Non Stenotic Plaque Mid CCA 87 14 Non Stenotic Plaque Distal CCA 170 31 Non Stenotic Plaque Bifurcation 185 40 60-79% stenosis Proximal ICA 152 24 40-59% stenosis Mid ICA 103 29 Non Stenotic Plaque Distal ICA 103 31 Normal ECA 188 21 Non Stenotic Plaque Vertebral Artery 82 15 Antegrade Flow Left PSV EDV Assessment Proximal CCA 79 17 Non Stenotic Plaque Mid CCA 129 34 Non Stenotic Plaque Distal CCA 365 83 Non Stenotic Plaque Bifurcation 312 79 60-79% stenosis Proximal ICA 113 23 40-59% stenosis Mid ICA 83 31 Normal Distal ICA 85 30 Normal ECA 138 20 Non Stenotic Plaque Vertebral Artery 61 10 Antegrade Flow Ratio's Right ICA/CCA Ratio: 1.75 ICA/CCA Values: 152/87 Left ICA/CCA Ratio: 0.88 ICA/CCA Values: 113/129 Updated by Willard Butler MD on 11/05/2016 5:50:56 PM electronically signed on 11/05/2016 5:51:32 PM with status of Final
[2016-11-05] MEDS: Famotidine 20 MG TABLET PO SCH (20:18)
[2016-11-05] MEDS: *HR* Heparin 5,000 UNIT/ML VIAL IVP PRN (20:53)
[2016-11-06] MEDS: Aspirin 81 MG TAB.CHEW PO SCH (08:31)
[2016-11-06] MEDS: Isosorbide MONOnitrate (24 HR) 30 MG TAB.ER.24H PO SCH (08:32)
--- NOTE | 2016-11-06 08:45 | Cardiothoracic Progress Note ---
Date of Encounter: 11/06/16 Time of Encounter: 08:43 - Assessment and plan (1) STEMI (ST elevation myocardial infarction) Current Visit: No Status: Acute The assessment and plan as outlined above was discussed with the patient and/or family members who expressed understanding and agreement. All questions were answered. The patient will be transferred to the floor when a bed becomes available. He is awaiting Plavix washout. He is tentatively scheduled for surgery on next Wednesday. He has no questions. Qualifiers: Involved coronary artery: other anterior wall coronary artery Qualified Code(s): I21.09 - ST elevation (STEMI) myocardial infarction involving other coronary artery of anterior wall - Subjective Interval history: The patient has had no angina. He has no complaints and no requests. Vital Signs, Last 4 Hours Temp Pulse Resp BP Pulse Ox 11/06/16 08:16 74 12 147/72 96 11/06/16 07:35 97.6 F Oxgyen Flow Rate Oxygen Flow Rate (LPM) 2 Weight 11/04/16 11/05/16 11/06/16 23:59 23:59 23:59 Weight 76 kg 73.6 kg Lungs are clear to percussion and auscultation. Heart is in a normal sinus rhythm. - Labs 11/04/16 09:43 11/04/16 09:43 Lab Results, Last 24 hours 11/05/16 11/05/16 11/06/16 14:08 20:10 03:04 APTT 59.6 H 51.0 H 94.3 H D Consult Discharge Plan - Plan Referrals: Suman Huang, [facility] [employer] [Primary Care Provider] -
--- NOTE | 2016-11-06 09:47 | Cardiology Progress Note ---
Date of Encounter: 11/06/16 Time of Encounter: 09:47 Assessment and Plan (1) STEMI (ST elevation myocardial infarction) Current Visit: No Status: Acute LHC 11/04/16 revealed severe multivessel CAD with proximal LAD diag bifurcation and proximal RCA. EF 55%, successful PTCA prox diag. CT surgery was consulted. Plan for CABG Wednesday--awaiting Plavix washout. Pt remains chest pain free s/p LHC, denies any shoulder blade discomfort. Echo EF 55-60%. Hypokinesis of basal-mid inferolateral wall and basal-mid anterolateral wall. Mild asymmetric LV basal septal hypertrophy. No significant valvular dysfunction. Continue heparin gtt, ASA, Statin, BB, NATALIE-I, nitrates. CBC and BMP ordered for today--pending. Transfer to ordered. Awaiting bed. Qualifiers: Involved coronary artery: other anterior wall coronary artery Qualified Code(s): I21.09 - ST elevation (STEMI) myocardial infarction involving other coronary artery of anterior wall (2) HTN (hypertension) Current Visit: No Status: Acute Controlled on current meds. Qualifiers: Hypertension type: essential hypertension Qualified Code(s): I10 - Essential (primary) hypertension Discussion w patient/family: The assessment and plan as outlined above was discussed with the patient and/or family members who expressed understanding and agreement. All questions were answered. Thank you for involving us in the care of your patient. Please call with any questions. I will discuss all the above with Dr. Miles and make changes as necessary. Subjective Principal diagnosis: STEMI Interval history: Awaiting CABG Wednesday. Pt remains chest pain free s/p LHC, denies any shoulder blade discomfort. No acute complaints this AM. Echo EF 55-60%. Hypokinesis of basal-mid inferolateral wall and basal-mid anterolateral wall. Mild asymmetric LV basal septal hypertrophy. No significant valvular dysfunction. Objective Vital Signs, Last 4 Hours Temp Pulse Resp BP Pulse Ox 11/06/16 08:16 74 12 147/72 96 11/06/16 07:35 97.6 F Vital Signs Temp Pulse Resp BP Pulse Ox 11/06/16 10:16 75 12 127/73 96 11/06/16 08:16 74 12 147/72 96 11/06/16 07:35 97.6 F 11/06/16 03:45 97.9 F 72 14 128/72 98 11/06/16 00:04 98.2 F 11/05/16 23:52 53 14 118/56 97 11/05/16 21:00 59 16 136/82 97 11/05/16 20:34 97.9 F 11/05/16 20:15 77 11/05/16 19:08 82 18 141/87 93 11/05/16 18:00 78 18 131/57 98 11/05/16 17:00 82 16 128/91 98 11/05/16 16:36 97.7 F 11/05/16 15:00 71 17 138/69 97 11/05/16 13:00 81 16 146/79 96 11/05/16 12:48 97.6 F 11/05/16 12:00 61 16 129/71 96 11/05/16 11:00 67 16 134/75 96 Intake and Output 11/05/16 11/06/16 11/06/16 23:59 07:59 15:59 Intake Total 12.3 / 12.3 154 / 154 480 / 480 Output Total 1250 / 1250 480 / 480 Balance -1237.7 / -1237.7 -326 / -326 480 / 480 Intake: IV Fluids 12.3 / 12.3 154 / 154 Heparin 25,000 UNIT/500 12.3 / 12.3 154 / 154 ML D5W 25,000 unit In 500 ml @ 12 UNIT/KG/HR 18. 507 mls/hr IVC .Q24H LIYA Rx#:[id number] Oral 0 / 0 0 / 0 480 / 480 Output: Urine 600 / 600 Catheter 650 / 650 480 / 480 Other: Meal Breakfast Percent of Meal Consumed 100% # Bowel Movements 0 Weight 73.6 kg Patient Weight 11/06/16 23:59 Weight 73.6 kg General: Conversant, No Apparent Distress HEENT: Atraumatic, Normocephaly, Mucus Membranes Moist Neck: No JVD, Normal carotid pulses Cardiac: Reg Rate and Rhythm, Normal S1 and S2, No Murmur Lungs: Normal Breath Sounds, No Wheeze, Rales, Rhonchi Neuro: Alert and responsive, No focal deficits noted Abdomen: Soft, Non-Tender Skin: No rashes noted on visualized skin Musculoskeletal: No Chest Wall Tenderness Extremities: No Clubbing, No Cyanosis, No Edema, Normal Pulses Results 11/04/16 09:43 11/04/16 09:43 Lab Results 11/05/16 11/05/16 11/06/16 14:08 20:10 03:04 APTT 59.6 H 51.0 H 94.3 H D Impressions Chest X-Ray 11/04/16 10:56 IMPRESSION: No acute cardiopulmonary process. D/ / 11/04/2016 11:19:50 Tamia Hsu MD / Nohelia Alarcon Interpreting Provider: Tamia Hsu MD Active Medications Acetaminophen (Tylenol) 500 mg PO Q6HR PRN PRN Reason: Mild Pain Stop: 05/06/17 09:53 Albuterol Sulfate (Albuterol Inhaler) 2 puff IH Q4H PRN PRN Reason: Shortness Of Breath Stop: 05/06/17 10:00 Aspirin (Aspirin) 81 mg PO DAILY LIYA Stop: 05/07/17 09:01 Last Admin: 11/06/16 08:31 Dose: 81 mg Atorvastatin Calcium (Lipitor) 40 mg PO HS LIYA Stop: 05/06/17 21:01 Last Admin: 11/05/16 20:18 Dose: 40 mg Carvedilol (Coreg) 3.125 mg PO BIDWM LIYA PRN Reason: Protocol Stop: 05/06/17 17:01 Last Admin: 11/06/16 08:32 Dose: 3.125 mg Chlorhexidine Gluconate (Chlorhexidine Rinse) 15 ml MM BID LIYA Stop: 11/10/16 09:01 Famotidine (Pepcid) 40 mg PO HS LIYA Stop: 05/06/17 21:01 Last Admin: 11/05/16 20:18 Dose: 40 mg Heparin Sodium (Porcine) (Heparin) 2,000 unit IVP Q6H PRN PRN Reason: SEE COMMENTS Stop: 05/06/17 09:53 Last Admin: 11/05/16 20:53 Dose: 2,000 unit Hydralazine HCl (Hydralazine) 10 mg IVP Q6HR PRN PRN Reason: Hypertension Stop: 05/06/17 17:03 Cefazolin Sodium (Ancef Premix 2,000 Mg/100 Ml) 2,000 mg in 100 mls @ 200 mls/ hr IVPB PREOP ONE PRN Reason: Protocol Stop: 11/10/16 07:29 Heparin Sodium/Dextrose (Heparin 25,000 Unit/500 Ml D5w) 25,000 unit in 500 mls @ 18.507 mls/hr IVC .Q24H LIYA; 12 UNIT/KG/HR PRN Reason: Protocol Stop: 05/06/17 10:01 Last Admin: 11/05/16 18:08 Dose: Not Given Isosorbide Mononitrate (Imdur) 30 mg PO DAILY LIYA Stop: 05/06/17 17:01 Last Admin: 11/06/16 08:32 Dose: 30 mg Lisinopril (Zestril) 5 mg PO DAILY LIYA PRN Reason: Protocol Stop: 05/07/17 09:01 Last Admin: 11/06/16 08:32 Dose: 5 mg Nitroglycerin (Nitroglycerin) 0.4 mg SL Q5MIN PRN PRN Reason: CHEST PAIN Stop: 05/07/17 16:53 Ondansetron HCl (Zofran) 4 mg IVP Q8HR PRN PRN Reason: Nausea And Vomiting Stop: 05/06/17 09:53 - Imaging and Cardiology Echo: report reviewed Cardiac cath: report reviewed - EKG Interpretation EKG results cardiology: other (24 hour tele AVG HR 65, SR, no significant pauses or arrhythmias.) Consult Discharge Plan - Plan Referrals: Suman Huang, SEAM RUBBER [Primary Care Provider] -
[2016-11-06 10:34] LABS: Basophils % 0.5 %; Eosinophils # 0.1 K/mcL (0.0-0.6); Eosinophils % 1.1 %; Hematocrit 41.5 % (37.5-50.1); Hemoglobin 13.7 g/dL (12.9-16.9); Immature Granulocytes % 0.3 % (0-4); Lymphocytes # 1.5 K/mcL (0.6-4.6); Lymphocytes % 22.3 %; Mean Corpuscular Volume 87.7 fL (83.0-100.0); Mean Platelet Volume 9.6 fL (9.4-12.4); Monocytes # 0.7 K/mcL (0.0-1.3); Monocytes % 9.9 %; Neutrophils # 4.3 K/mcL (1.6-8.9); Platelet Count 225 K/mcL (140-400); Red Blood Count 4.73 M/mcL (4.19-5.50); Segmented Neutrophils % 65.9 %
[2016-11-06 10:55] LABS: BUN/Creatinine Ratio 16 (6-26); Blood Urea Nitrogen 16 mg/dL (8-26); Calcium 9.7 mg/dL (8.6-10.8); Carbon Dioxide 30 mEq/L (19-29); Chloride 106 mEq/L (98-109); Glucose 86 mg/dL (70-99); Osmolality,Calculated 296 (280-300); Potassium 4.3 mEq/L (3.5-4.5); Sodium 143 mEq/L (136-145); eGFR For African Americans > 60 (> 60); eGFR For Non-African Americans > 60 (> 60)
[2016-11-06] MEDS: *HR* Heparin 5,000 UNIT/ML VIAL IVP PRN (12:15)
[2016-11-06] MEDS: Heparin 25,000 UNIT/500 ML D5W 25,000 UNIT/500 ML MLS IVC SCH (17:44)
[2016-11-06] MEDS: Famotidine 20 MG TABLET PO SCH (20:13)
[2016-11-07] MEDS: Isosorbide MONOnitrate (24 HR) 30 MG TAB.ER.24H PO SCH (09:19)
[2016-11-07] MEDS: Aspirin 81 MG TAB.CHEW PO SCH (09:21)
--- NOTE | 2016-11-07 09:25 | Cardiothoracic Progress Note ---
Date of Encounter: 11/07/16 Time of Encounter: 09:24 - Assessment and plan (1) STEMI (ST elevation myocardial infarction) Current Visit: No Status: Acute The patient is scheduled for surgery on Wednesday to allow for Plavix washout. He has no questions. Qualifiers: Involved coronary artery: other anterior wall coronary artery Qualified Code(s): I21.09 - ST elevation (STEMI) myocardial infarction involving other coronary artery of anterior wall - Subjective Interval history: The patient has no complaints and no chest pain or angina on a heparin drip. Vital Signs, Last 4 Hours Temp Pulse Resp BP Pulse Ox 11/07/16 07:45 97.6 F 76 18 133/79 98 Oxgyen Flow Rate Oxygen Flow Rate (LPM) 2.5 Clinical Data, last 8 Hours Output, Urine Amount 400 Weight 11/05/16 11/06/16 11/07/16 23:59 23:59 23:59 Weight 73.6 kg 70.4 kg Lungs are clear to percussion and auscultation. Heart is in a normal sinus rhythm. - Labs 11/06/16 10:26 11/06/16 10:26 Lab Results, Last 24 hours 11/06/16 11/06/16 11/06/16 10:26 10:26 10:26 WBC 6.5 Hgb 13.7 D Hct 41.5 Plt Count 225 APTT 52.6 H Sodium 143 D Potassium 4.3 Chloride 106 Carbon Dioxide 30 H BUN 16 Creatinine 1.00 Glucose 86 Calcium 9.7 11/06/16 11/07/16 11/07/16 17:56 01:04 07:29 WBC Hgb Hct Plt Count APTT 97.4 H D 62.7 H 43.4 H Sodium Potassium Chloride Carbon Dioxide BUN Creatinine Glucose Calcium Consult Discharge Plan - Plan Referrals: Suman Huang, [employer] [Primary Care Provider] -
[2016-11-07] MEDS: *HR* Heparin 5,000 UNIT/ML VIAL IVP PRN ×2 (10:09→16:59)
--- NOTE | 2016-11-07 11:13 | Cardiology Progress Note ---
Date of Encounter: 11/07/16 Time of Encounter: 11:00 Assessment and Plan (1) STEMI (ST elevation myocardial infarction) Current Visit: No Status: Acute Per Cardiology: [facility] 11/04/16 revealed severe multivessel CAD with proximal LAD diag bifurcation and proximal RCA. EF 55%, successful PTCA prox diag. Echo EF 55-60%. Hypokinesis of basal-mid inferolateral wall and basal-mid anterolateral wall. Mild asymmetric LV basal septal hypertrophy. No significant valvular dysfunction. Plan for CABG Wednesday--awaiting Plavix washout. Denies CP. On heparin gtt, ASA, Statin, BB, NATALIE-I. Qualifiers: Involved coronary artery: other anterior wall coronary artery Qualified Code(s): I21.09 - ST elevation (STEMI) myocardial infarction involving other coronary artery of anterior wall Discussion w patient/family: The assessment and plan as outlined above was discussed with the patient who expressed understanding and agreement. All questions were answered. Thank you for involving us in the care of your patient. Please call with any questions. Subjective Principal diagnosis: STEMI Interval history: Patient denies any chest pain, shortness of breath, palpitations. Denies any concerns or complaints. Objective Vital Signs, Last 4 Hours Temp Pulse Resp BP Pulse Ox 11/07/16 10:00 78 18 139/78 99 11/07/16 07:45 97.6 F 76 18 133/79 98 General: Conversant, No Apparent Distress HEENT: Atraumatic, Normocephaly, Mucus Membranes Moist Cardiac: Reg Rate and Rhythm, Normal S1 and S2, No Murmur Lungs: Normal Breath Sounds, No Wheeze, Rales, Rhonchi Neuro: Alert and responsive, No focal deficits noted Extremities: No Edema Results 11/06/16 10:26 11/06/16 10:26 Lab Results - Imaging and Cardiology Echo: report reviewed Cardiac cath: report reviewed - EKG Interpretation EKG results cardiology: other (Sinus rhythm on telemetry) Consult Discharge Plan - Plan Referrals: Suman Huang, POLICE COMMUNICATIONS DISPATCHER [Primary Care Provider] -
[2016-11-07] MEDS: Famotidine 20 MG TABLET PO SCH (20:32)
[2016-11-07] MEDS: Heparin 25,000 UNIT/500 ML D5W 25,000 UNIT/500 ML MLS IVC SCH (20:36)
[2016-11-07 23:33] LABS: Heparin anti-factor XA UFH 0.59 IU/mL (0.30-0.70)
[2016-11-08] MEDS: Aspirin 81 MG TAB.CHEW PO SCH (08:17)
[2016-11-08] MEDS: Isosorbide MONOnitrate (24 HR) 30 MG TAB.ER.24H PO SCH (08:17)
--- NOTE | 2016-11-08 08:21 | Cardiology Progress Note ---
Date of Encounter: 11/08/16 Time of Encounter: 07:10 Assessment and Plan (1) STEMI (ST elevation myocardial infarction) Current Visit: No Status: Acute Per Cardiology: [facility] 11/04/16 revealed severe multivessel CAD with proximal LAD diag bifurcation and proximal RCA. EF 55%, successful PTCA prox diag. Echo EF 55-60%. Hypokinesis of basal-mid inferolateral wall and basal-mid anterolateral wall. Mild asymmetric LV basal septal hypertrophy. No significant valvular dysfunction. Plan for CABG Wednesday--awaiting Plavix washout. Denies CP. On heparin gtt, ASA, Statin, BB, NATALIE-I-- will DC NATALIE inhibitor for preop. Qualifiers: Involved coronary artery: other anterior wall coronary artery Qualified Code(s): I21.09 - ST elevation (STEMI) myocardial infarction involving other coronary artery of anterior wall Discussion w patient/family: The assessment and plan as outlined above was discussed with the patient who expressed understanding and agreement. All questions were answered. Thank you for involving us in the care of your patient. Please call with any questions. Subjective Principal diagnosis: STEMI Interval history: Patient denies any chest pain, shortness of breath, palpitations. Denies any concerns or complaints. Objective Vital Signs, Last 4 Hours Pulse 11/08/16 05:00 58 Selected Entries 11/08/16 03:59 Blood Pressure 104/74 General: Conversant, No Apparent Distress Cardiac: Reg Rate and Rhythm, Normal S1 and S2, No Murmur Skin: Other (Right wrist site dry and intact, no hematoma, no bleeding, radial pulse 2+ palpable) Results 11/06/16 10:26 11/06/16 10:26 Lab Results Active Medications Acetaminophen (Tylenol) 500 mg PO Q6HR PRN PRN Reason: Mild Pain Stop: 05/06/17 09:53 Last Admin: 11/06/16 16:09 Dose: 500 mg Albuterol Sulfate (Albuterol Inhaler) 2 puff IH Q4H PRN PRN Reason: Shortness Of Breath Stop: 05/06/17 10:00 Aspirin (Aspirin) 81 mg PO DAILY LIYA Stop: 05/07/17 09:01 Last Admin: 11/07/16 09:21 Dose: 81 mg Atorvastatin Calcium (Lipitor) 40 mg PO HS LIYA Stop: 05/06/17 21:01 Last Admin: 11/07/16 20:35 Dose: 40 mg Carvedilol (Coreg) 3.125 mg PO BIDWM LIYA PRN Reason: Protocol Stop: 05/06/17 17:01 Last Admin: 11/07/16 16:58 Dose: 3.125 mg Chlorhexidine Gluconate (Chlorhexidine Rinse) 15 ml MM BID [facility]YA Stop: 11/10/16 09:01 Famotidine (Pepcid) 40 mg PO HS [facility]YA Stop: 05/06/17 21:01 Last Admin: 11/07/16 20:32 Dose: 40 mg Heparin Sodium (Porcine) (Heparin) 2,000 unit IVP Q6H PRN PRN Reason: SEE COMMENTS Stop: 05/06/17 09:53 Last Admin: 11/07/16 16:59 Dose: 2,000 unit Hydralazine HCl (Hydralazine) 10 mg IVP Q6HR PRN PRN Reason: Hypertension Stop: 05/06/17 17:03 Cefazolin Sodium (Ancef Premix 2,000 Mg/100 Ml) 2,000 mg in 100 mls @ 200 mls/ hr IVPB PREOP ONE PRN Reason: Protocol Stop: 11/10/16 07:29 Heparin Sodium/Dextrose (Heparin 25,000 Unit/500 Ml D5w) 25,000 unit in 500 mls @ 18.507 mls/hr IVC .Q24H LIYA; 12 UNIT/KG/HR PRN Reason: Protocol Stop: 05/06/17 10:01 Last Titration: 11/08/16 00:27 Dose: 14.44 unit/kg/hr, 22.27 mls/hr Isosorbide Mononitrate (Imdur) 30 mg PO DAILY [facility] Stop: 05/06/17 17:01 Last Admin: 11/07/16 09:19 Dose: 30 mg Lisinopril (Zestril) 5 mg PO DAILY LIYA PRN Reason: Protocol Stop: 05/07/17 09:01 Last Admin: 11/07/16 09:21 Dose: 5 mg Nitroglycerin (Nitroglycerin) 0.4 mg SL Q5MIN PRN PRN Reason: CHEST PAIN Stop: 05/07/17 16:53 Ondansetron HCl (Zofran) 4 mg IVP Q8HR PRN PRN Reason: Nausea And Vomiting Stop: 05/06/17 09:53 - EKG Interpretation EKG results cardiology: other (Sinus rhythm on telemetry) Consult Discharge Plan - Plan Referrals: Suman Huang, VINEYARD SUPERVISOR [Primary Care Provider] -
--- NOTE | 2016-11-08 08:25 | Cardiothoracic Progress Note ---
Date of Encounter: 11/08/16 Time of Encounter: 08:23 - Assessment and plan (1) STEMI (ST elevation myocardial infarction) Current Visit: No Status: Acute The patient is scheduled for open heart surgery on Wednesday. This will allow him to be off Plavix for 5 days. He has no questions. Qualifiers: Involved coronary artery: other anterior wall coronary artery Qualified Code(s): I21.09 - ST elevation (STEMI) myocardial infarction involving other coronary artery of anterior wall - Subjective Interval history: The patient has no angina and no chest pain. He has no other complaints. Vital Signs, Last 4 Hours Pulse 11/08/16 05:00 58 Oxgyen Flow Rate Oxygen Flow Rate (LPM) 2 Clinical Data, last 8 Hours Output, Urine Amount 350 Weight 11/06/16 11/07/16 11/08/16 23:59 23:59 23:59 Weight 73.6 kg 70.4 kg 71.2 kg Lungs are clear to percussion and auscultation. Heart is in a normal sinus rhythm. - Labs 11/06/16 10:26 11/06/16 10:26 Lab Results, Last 24 hours 11/07/16 11/07/16 11/07/16 07:29 15:59 22:59 APTT 43.4 H 38.8 H 131.0 H* D 11/08/16 06:07 APTT 85.4 H Consult Discharge Plan - Plan Referrals: Suman Huang, BONDING MACHINE SETTER [Primary Care Provider] -
[2016-11-08] MEDS: Heparin 25,000 UNIT/500 ML D5W 25,000 UNIT/500 ML MLS IVC SCH (17:08)
[2016-11-08] MEDS: Famotidine 20 MG TABLET PO SCH (20:48)
[2016-11-09] MEDS: Aspirin 81 MG TAB.CHEW PO SCH (08:23)
[2016-11-09] MEDS: Isosorbide MONOnitrate (24 HR) 30 MG TAB.ER.24H PO SCH (08:23)
--- NOTE | 2016-11-09 08:44 | Cardiothoracic Progress Note ---
Date of Encounter: 11/09/16 Time of Encounter: 08:41 - Assessment and plan (1) STEMI (ST elevation myocardial infarction) Current Visit: No Status: Acute The patient is scheduled for open heart surgery tomorrow. Operative consent was obtained. Risks of surgery include , infection, stroke,myocardial infarction, bleeding, clots around the heart, renal or respiratory failure, acute or chronic graft closure, phrenic nerve injury and sternal dehiscence. The procedure, its risks, benefits and alternatives were explained and he wishes to proceed. He has no questions. We will ask social work to see him. We will discontinue his heparin drip at 5 AM tomorrow morning. Qualifiers: Involved coronary artery: other anterior wall coronary artery Qualified Code(s): I21.09 - ST elevation (STEMI) myocardial infarction involving other coronary artery of anterior wall - Subjective Interval history: The patient has no chest pain and no angina on a heparin drip. He requests to see social work to discuss possible disability. Vital Signs, Last 4 Hours Temp Pulse Resp BP Pulse Ox 11/09/16 08:15 62 11/09/16 07:31 97.4 F L 64 16 129/76 95 Oxgyen Flow Rate Oxygen Flow Rate (LPM) 2 Clinical Data, last 8 Hours Output, Urine Amount 1,000 Weight 11/07/16 11/08/16 11/09/16 23:59 23:59 23:59 Weight 70.4 kg 71.2 kg 70.6 kg Lungs are clear to percussion and auscultation. Heart is in a normal sinus rhythm. - Labs 11/06/16 10:26 11/06/16 10:26 Lab Results, Last 24 hours 11/08/16 11/09/16 13:26 03:50 APTT 75.2 H 86.4 H Consult Discharge Plan - Plan Referrals: Suman Huang, COLD PRESS LOADER [Primary Care Provider] -
--- NOTE | 2016-11-09 11:06 | Cardiology Progress Note ---
Date of Encounter: 11/09/16 Time of Encounter: 11:04 Assessment and Plan (1) STEMI (ST elevation myocardial infarction) Current Visit: No Status: Acute Per Cardiology: [facility] 11/04/16 revealed severe multivessel CAD with proximal LAD diag bifurcation and proximal RCA. EF 55%, successful PTCA prox diag. \Echo EF 55-60%. Hypokinesis of basal-mid inferolateral wall and basal-mid anterolateral wall. Plan for CABG tomorrow--awaiting Plavix washout. Denies CP. On heparin gtt, ASA , Statin, BB. Will plan for follow-up 4-6 weeks after CABG. Qualifiers: Involved coronary artery: other anterior wall coronary artery Qualified Code(s): I21.09 - ST elevation (STEMI) myocardial infarction involving other coronary artery of anterior wall Discussion w patient/family: The assessment and plan as outlined above was discussed with the patient and/or family members who expressed understanding and agreement. All questions were answered. Thank you for involving us in the care of your patient. Please call with any questions. I will discuss all the above with Dr. Teja Sparrow and make changes as necessary. Subjective Principal diagnosis: STEMI Interval history: Awaiting CABG Wednesday. Pt denies any complaints this AM. Objective Vital Signs, Last 4 Hours Temp Pulse Resp BP Pulse Ox 11/09/16 08:15 62 11/09/16 07:31 97.4 F L 64 16 129/76 95 Vital Signs Temp Pulse Resp BP Pulse Ox 11/09/16 08:15 62 11/09/16 07:31 97.4 F L 64 16 129/76 95 11/09/16 04:38 54 11/09/16 03:34 97.5 F L 68 12 137/73 97 11/09/16 01:15 54 11/09/16 00:16 97.5 F L 52 15 117/74 98 11/08/16 20:30 63 11/08/16 20:28 97.5 F L 63 13 126/71 98 11/08/16 15:00 97.7 F 64 18 114/67 98 Intake and Output 11/08/16 11/09/16 11/09/16 23:59 07:59 15:59 Intake Total 400 / 400 480 / 480 Output Total 1000 / 1000 Balance 400 / 400 -520 / -520 Intake: IV Fluids 400 / 400 0 / 0 Heparin 25,000 UNIT/500 400 / 400 0 / 0 ML D5W 25,000 unit In 500 ml @ 12 UNIT/KG/HR 18. 507 mls/hr IVC .Q24H [facility] Rx#:[id number] Oral 480 / 480 Output: Urine 1000 / 1000 Other: Meal Dinner Breakfast Percent of Meal Consumed 100% 100% Stool Size Moderate Stool Consistency formed Stool Characteristics Normal for Patient Stool Color Brown Weight 70.6 kg Patient Weight 11/09/16 23:59 Weight 70.6 kg General: Conversant, No Apparent Distress HEENT: Atraumatic, Normocephaly, Mucus Membranes Moist Neck: No JVD, Normal carotid pulses Cardiac: Reg Rate and Rhythm, Normal S1 and S2, No Murmur Lungs: Normal Breath Sounds, No Wheeze, Rales, Rhonchi Neuro: Alert and responsive, No focal deficits noted Abdomen: Soft, Non-Tender Skin: No rashes noted on visualized skin Musculoskeletal: No Chest Wall Tenderness Extremities: No Clubbing, No Cyanosis, No Edema, Normal Pulses Results 11/06/16 10:26 11/06/16 10:26 Lab Results 11/08/16 11/09/16 13:26 03:50 APTT 75.2 H 86.4 H Active Medications Acetaminophen (Tylenol) 500 mg PO Q6HR PRN PRN Reason: Mild Pain Stop: 05/06/17 09:53 Last Admin: 11/08/16 17:12 Dose: 500 mg Albuterol Sulfate (Albuterol Inhaler) 2 puff IH Q4H PRN PRN Reason: Shortness Of Breath Stop: 05/06/17 10:00 Aspirin (Aspirin) 81 mg PO DAILY [facility] Stop: 05/07/17 09:01 Last Admin: 11/09/16 08:23 Dose: 81 mg Atorvastatin Calcium (Lipitor) 40 mg PO HS [facility] Stop: 05/06/17 21:01 Last Admin: 11/08/16 20:48 Dose: 40 mg Carvedilol (Coreg) 3.125 mg PO BIDWM LIYA PRN Reason: Protocol Stop: 05/06/17 17:01 Last Admin: 11/09/16 08:23 Dose: 3.125 mg Chlorhexidine Gluconate (Chlorhexidine Rinse) 15 ml MM BID [facility] Stop: 11/10/16 09:01 Famotidine (Pepcid) 40 mg PO HS [facility] Stop: 05/06/17 21:01 Last Admin: 11/08/16 20:48 Dose: 40 mg Heparin Sodium (Porcine) (Heparin) 2,000 unit IVP Q6H PRN PRN Reason: SEE COMMENTS Stop: 11/10/16 05:00 Last Admin: 11/07/16 16:59 Dose: 2,000 unit Hydralazine HCl (Hydralazine) 10 mg IVP Q6HR PRN PRN Reason: Hypertension Stop: 05/06/17 17:03 Cefazolin Sodium (Ancef Premix 2,000 Mg/100 Ml) 2,000 mg in 100 mls @ 200 mls/ hr IVPB PREOP ONE PRN Reason: Protocol Stop: 11/10/16 07:29 Heparin Sodium/Dextrose (Heparin 25,000 Unit/500 Ml D5w) 25,000 unit in 500 mls @ 18.507 mls/hr IVC .Q24H [facility]; 12 UNIT/KG/HR PRN Reason: Protocol Stop: 11/10/16 05:00 Last Titration: 11/09/16 08:01 Dose: 14.45 unit/kg/hr, 22.3 mls/hr Isosorbide Mononitrate (Imdur) 30 mg PO DAILY [facility] Stop: 05/06/17 17:01 Last Admin: 11/09/16 08:23 Dose: 30 mg Nitroglycerin (Nitroglycerin) 0.4 mg SL Q5MIN PRN PRN Reason: CHEST PAIN Stop: 05/07/17 16:53 Ondansetron HCl (Zofran) 4 mg IVP Q8HR PRN PRN Reason: Nausea And Vomiting Stop: 05/06/17 09:53 - Imaging and Cardiology Echo: report reviewed Cardiac cath: report reviewed Consult Discharge Plan - Plan Referrals: Suman Huang, DIGITAL FORENSICS EXAMINER [Primary Care Provider] -
[2016-11-09] MEDS: Heparin 25,000 UNIT/500 ML D5W 25,000 UNIT/500 ML MLS IVC SCH (17:21)
[2016-11-09] MEDS: Famotidine 20 MG TABLET PO SCH (20:06)
[2016-11-09] MEDS: Chlorhexidine Rinse 15 ML MOUTHWASH MM SCH (20:08)
[2016-11-09] MEDS ORDERED: Chlorhexidine Rinse 15 ML MOUTHWASH MM SCH (21:00)
[2016-11-10 04:47] LABS: Basophils % 0.7 %; Eosinophils # 0.2 K/mcL (0.0-0.6); Eosinophils % 2.6 %; Immature Granulocytes % 0.7 % (0-4); Immature Platelets 3.5 % (1.1-6.1); Lymphocytes # 1.6 K/mcL (0.6-4.6); Lymphocytes % 25.6 %; Mean Corpuscular HGB Conc 33.3 g/dL (31.6-35.5); Mean Corpuscular Hemoglobin 29.5 pg (28.0-33.3); Mean Corpuscular Volume 88.4 fL (83.0-100.0); Mean Platelet Volume 10.1 fL (9.4-12.4); Monocytes # 0.6 K/mcL (0.0-1.3); Monocytes % 9.2 %; Neutrophils # 3.7 K/mcL (1.6-8.9); Platelet Count 222 K/mcL (140-400); Red Blood Count 4.41 M/mcL (4.19-5.50); Red Cell Distribution Width 11.9 % (11.5-14.5); Segmented Neutrophils % 61.2 %
[2016-11-10 04:56] LABS: INR 1.1; Prothrombin Time 11.4 Seconds (9.4-12.1)
[2016-11-10 04:59] LABS: BUN/Creatinine Ratio 22 (6-26); Blood Urea Nitrogen 19 mg/dL (8-26); Calcium 9.3 mg/dL (8.6-10.8); Carbon Dioxide 30 mEq/L (19-29); Chloride 104 mEq/L (98-109); Glucose 97 mg/dL (70-99); Osmolality,Calculated 292 (280-300); Potassium 3.9 mEq/L (3.5-4.5); Sodium 140 mEq/L (136-145); eGFR For African Americans > 60 (> 60); eGFR For Non-African Americans > 60 (> 60)
[2016-11-10] MEDS: Chlorhexidine Rinse 15 ML MOUTHWASH MM SCH ×2 (05:42→23:29)
[2016-11-10] MEDS ORDERED: CeFAZolin Pre 2,000 MG/100 ML 2,000 MG/100 ML BAG IVPB ONE ×2 (07:00)
[2016-11-10] MEDS ORDERED: *HR* FentaNYL (PF) 1,000 MCG/20 ML VIAL ONE (07:24)
[2016-11-10] MEDS ORDERED: *HR* Midazolam HCl 5 MG/5 ML VIAL IVP ONE ×2 (07:25)
[2016-11-10] MEDS ORDERED: *HR* Rocuronium Bromide 50 MG/5 ML VIAL ONE ×2 (07:33→10:58)
[2016-11-10] MEDS ORDERED: *HR* EPINEPHrine 1 MG/ML AMPUL ONE (07:33)
[2016-11-10] MEDS ORDERED: Dexamethasone 4 MG/ML VIAL ONE (07:33)
[2016-11-10] MEDS ORDERED: *HR* Phenylephrine 10 MG/ML VIAL ONE (07:33)
[2016-11-10] MEDS ORDERED: *HR* Heparin 5,000 UNIT/ML VIAL ONE (07:33)
[2016-11-10] MEDS ORDERED: *HR* Etomidate 20 MG/10 ML AMPUL IVP ONE (07:33)
[2016-11-10] MEDS ORDERED: Lidocaine 1% 20 ML MDV ONE (07:35)
[2016-11-10] MEDS ORDERED: Nitroglycerin 25 MG/250 ML INFUS..BTL IVC ONE ×2 (08:29→11:26)
[2016-11-10] MEDS ORDERED: Water for inj. (sterile) 20 ML IV ONE (10:58)
[2016-11-10] MEDS ORDERED: Albumin Human 5% 50.0 GM/1,000 ML VIAL ONE (11:13)
--- NOTE | 2016-11-10 11:20 | Operative Note ---
Date of procedure: 11/10/16 Pre-op diagnosis: STEMI Post-op diagnosis: same Procedure: . CABG 3 (OYUNGER to LAD, SVG to D1, SVG to PDA). 2. Endoscopic vein harvesting, greater saphenous vein from right lower extremity. Implants: None. Complications: None. Anesthesia: LAYO Surgeon: Deb Garcia Burglar Alarm Operator: Teja Banks Specimen: None. Condition: stable Disposition: ICU Procedure in Detail: INDICATIONS FOR OPERATION: The patient is a 56 year old hypertensive man with hypercholesterolemia and known CAD. The patient experienced a myocardial infarction in 2012 which required PCI and LCx stent placement. He did well until 1 week ago when he began experiencing exertional intrascapular back pain and precordial chest pain. 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 He had associated shortness of breath, but denied any diaphoresis, nausea , vomiting, or syncope. Last evening the patient had more severe precordial chest pain while resting at home. He had a previously scheduled appointment in the cardiology office and did not seek medical attention at that time. The patient arrived at the cardiology office morning of November 04, 2016 and related his recent symptoms, He underwent an ECG in the office which revealed anteroseptal ST segment elevation consistent with an acute STEMI. The patient was taken emergently to the cardiac catheterization lab. This study revealed severe two-vessel CAD. In particular the patient had an 80-90% LAD bifurcation lesion involving the D1 branch. In addition the patient had an 80-90% proximal RCA lesion. The LCx which had been previously stented had no flow-limiting lesions. The patient underwent balloon angioplasty of the bifurcation lesion to improve anterior blood flow and relieve his symptoms. He was admitted for urgent CABG; however, he had been on Plavix for his previous stent placements and this was stopped for 5 days prior to CABG FINDINGS AT OPERATION: The aorta was of normal caliber without calcification. The coronary arteries measure proximally 2-3 mm diameter and had mild distal disease. The greater saphenous vein was harvested endoscopically from the right lower extremity from the knee to the groin and was of good quality. The total bypass time was 63 minutes, cross-clamp time 31 minutes, intentional hypothermia of 34C. DESCRIPTION OF OPERATION: After obtaining informed consent from the patient, he was taken to the operating room where satisfactory general endotracheal anesthetic was induced. Appropriate monitoring lines were placed, and the patient's chest, abdomen, and lower extremity were prepped and draped in a sterile fashion. The greater saphenous vein was harvested endoscopically from the right lower extremity from the knee to the groin and was of good quality. The subcutaneous tissue and skin edges were reapproximation running Vicryl sutures. Simultaneously, a standard median sternotomy incision was made and sternum divided. The YOUNGER was taken down from its bed and side branches divided between hemoclips. The sternum was and the pericardium opened and reflected laterally. The patient was prepared for cannulation by placing pursestring sutures in the distal ascending aorta, mid-ascending aorta, and right atrial appendage. The patient was heparinized and when the ACT was greater than 200 seconds, the distal ascending aorta was cannulated followed placement of a dual stage venous cannula through the right atrial appendage and into the IVC. A stab -in antegrade metabolic and was placed in the mid-ascending aorta. The patient was placed on bypass and the temperature allowed to drift to 34 antegrade. The distal targets were identified and the aorta was crossclamped. The patient received 700 mL of cold antegrade crystalloid cartilage of the aortic root and the patient's heart obtained rapid diastolic arrest. The PDA was opened with a [place] blade and the vein was anastomosed in an end-to -side fashion using a running 7-0 Prolene suture. The anastomosis found to be hemostatic. This process was then repeated for the D1 branch. After completion of this anastomosis the patient seated final cold antegrade crystalloid cardioplegia through the aortic root. The LAD was opened with a [place] blade and the YOUNGER was anastomosed in end-to-side fashion to the LAD using a running 7 -0 Prolene suture. The anastomosis was found to be hemostatic and the mammary pedicle was tacked to the epicardium using interrupted 5-0 silk suture. Rewarming was begun during this anastomosis. The aortic cross-clamp was released and the heart distended. The veins were measured and cut at appropriate lengths. A partial occluding clamp was placed across the mid-ascending aorta and the antegrade cardioplegia cannula was removed. An additional aortotomy site was made 11 blade and both sides were enlarged with a 4 mm punch. The veins were anastomosed to the aorta in end-to- side fashion using running 5-0 Prolene suture. The anastomoses were occluded with a bulldog clamp and ear with a 25-gauge needle prior to removing the partial occluding clamp. The proximal and distal anastomoses were found to be hemostatic, and the proximal anastomoses were marked with radiopaque loops. Two right ventricular temporary epicardial patient is replaced, and 3 chest tubes were placed, 2 in the mediastinum and one into the left pleural space. During rewarming the patient's heart rhythm degenerated to ventricular fibrillation and required a single 10 J direct current shock and arch regain normal sinus rhythm. When the patient's systemic temperature reached 36C, he was ventilated and received volume. He was then weaned from bypass required no inotropic support. Protamine was administered and the aortic and venous cannulae were removed. The pursestring sutures were secured, and the venous cannulation site was reinforced with a 4 Prolene suture. The pericardium was loosely approximated in the midline and the sternum was reapproximated using sternal wires. The pectoralis major fascia, rectus abdominis fascia, subcutaneous tissue, and skin edges were reapproximated using running Vicryl sutures. Sterile dressings were applied. The patient was transferred to the ICU in satisfactory postoperative condition. There were no intraoperative complications, and the instrument, needle, and sponge count were correct at end of operation. - Open Heart Detail LEONELA (Internal Mammary Artery) Usage: Yes Cardiopulmonary Bypass Time (mins): 63 Aortic Cross Clamp Time (mins): 31 Intentional Hypothermia Temperature (C.): 34
[2016-11-10] MEDS ORDERED: Ondansetron 4 MG/2 ML VIAL IVP PRN (11:21)
[2016-11-10] MEDS ORDERED: *HR* OxyCODONE/APAP 5/325 TABLET PO PRN (11:21)
[2016-11-10] MEDS ORDERED: Acetaminophen 650 MG RECTAL SUPP RC PRN (11:21)
[2016-11-10] MEDS ORDERED: Acetaminophen 325 MG TABLET PO PRN (11:21)
[2016-11-10] MEDS ORDERED: *HR* Morphine 2 MG/ML SYRINGE IVP PRN (11:21)
[2016-11-10] MEDS ORDERED: *HR* Dextrose 50 % in Water (Syg) 50 ML SYRINGE IVP PRN (11:21)
[2016-11-10] MEDS ORDERED: Potassium Chloride 40 MEQ/200 ML BAG IVPB PRN (11:21)
[2016-11-10] MEDS ORDERED: Calcium Chloride 1,000 MG in 0.9 % Sodium Chloride 100 ML IVPB PRN (11:21)
[2016-11-10] MEDS ORDERED: Magnesium Sulfate 2 GM in D5% in Water 100 ML IVPB PRN (11:21)
[2016-11-10] MEDS ORDERED: Insulin Regular, Human 100 UNIT/ML IV PRN (11:21)
[2016-11-10] MEDS ORDERED: niCARdipine 40 MG/200 ML MLS IVC ONE (11:26)
[2016-11-10] MEDS ORDERED: 0.9 % Sodium Chloride w KCl 20 MEQ/1,000 ML MLS IVC SCH (11:30)
[2016-11-10 11:48] LABS: ABG Base Excess 4.9 mEq/L (-2.0 to 3.0); ABG HCO3 29.9 mEQ/L (21-27); ABG Oxygen Saturation 100 % (95-98); ABG PCO2 45 mmHg (35-45); ABG PO2 214 mmHg (85-104); ABG TCO2 31.3 mEq/L (20-26); Basophils % 0.3 %; Eosinophils # 0.1 K/mcL (0.0-0.6); Eosinophils % 0.6 %; Hematocrit 35.3 % (37.5-50.1); Hemoglobin 11.9 g/dL (12.9-16.9); Immature Granulocytes % 0.4 % (0-4); Lymphocytes # 0.6 K/mcL (0.6-4.6); Lymphocytes % 5.4 %; Mean Corpuscular HGB Conc 33.7 g/dL (31.6-35.5); Mean Corpuscular Hemoglobin 29.5 pg (28.0-33.3); Mean Corpuscular Volume 87.4 fL (83.0-100.0); Mean Platelet Volume 9.9 fL (9.4-12.4); Monocytes # 0.6 K/mcL (0.0-1.3); Monocytes % 5.9 %; Neutrophils # 9.2 K/mcL (1.6-8.9); Platelet Count 134 K/mcL (140-400); Red Blood Count 4.04 M/mcL (4.19-5.50); Red Cell Distribution Width 11.9 % (11.5-14.5); Segmented Neutrophils % 87.4 %
[2016-11-10] MEDS: Nitroglycerin 25 MG/250 ML INFUS..BTL IVC SCH (11:50)
[2016-11-10 11:52] LABS: Blood Gas FiO2 60 %; Blood Gas Respiration Rate 10; Blood Gas VT 600 cc
[2016-11-10 11:53] LABS: ABG PH 7.43 pH Units (7.32-7.45); Blood Gas PEEP 5 cm H2O; INR 1.3; Prothrombin Time 13.7 Seconds (9.4-12.1)
[2016-11-10 11:56] LABS: Activated Partial Thrombo Time 30.2 Seconds (26.0-36.0)
[2016-11-10 12:00] LABS: BUN/Creatinine Ratio 19 (6-26); Blood Urea Nitrogen 15 mg/dL (8-26); Carbon Dioxide 30 mEq/L (19-29); Chloride 106 mEq/L (98-109); Glucose 107 mg/dL (70-99); Magnesium 2.5 mg/dL (1.6-2.6); Osmolality,Calculated 291 (280-300); Potassium 3.8 mEq/L (3.5-4.5); eGFR For African Americans > 60 (> 60); eGFR For Non-African Americans > 60 (> 60)
[2016-11-10] MEDS: *HR* Morphine 2 MG/ML SYRINGE IVP PRN ×3 (12:00→22:08)
[2016-11-10 12:01] LABS: Calcium 7.7 mg/dL (8.6-10.8)
[2016-11-10 12:03] LABS: Sodium 140 mEq/L (136-145)
[2016-11-10] MEDS: Pantoprazole 40 MG VIAL IVP SCH (12:16)
[2016-11-10] MEDS: Ketorolac 15 MG/ML VIAL IVP SCH ×3 (12:16→23:29)
[2016-11-10] MEDS: Metoclopramide 10 MG/2 ML VIAL IVP SCH ×3 (12:16→23:30)
[2016-11-10] MEDS ORDERED: *HR* Phenylephrine 10 MG/ML VIAL IVC ONE (12:48)
[2016-11-10] MEDS ORDERED: Sodium Bicarbonate 50 MEQ/50 ML VIAL IVC ONE (12:48)
[2016-11-10] MEDS ORDERED: Albumin Human 25% 25 GM/100 ML IV.SOLN IV ONE (12:48)
[2016-11-10] MEDS ORDERED: *HR* Magnesium Sulfate 2 GM/50 ML PIGGYBACK IVPB ONE (12:48)
[2016-11-10] MEDS ORDERED: *HR* Heparin 10,000 UNIT/10 ML VIAL IV ONE (12:48)
[2016-11-10] MEDS ORDERED: Mannitol 25% vial 12.5 GM/50 ML VIAL IVP ONE (12:48)
[2016-11-10] MEDS ORDERED: Lidocaine 2% Syringe 100 MG/5 ML IV ONE (12:48)
[2016-11-10] MEDS: Insulin Human Regular 100 UNIT in 0.9 % Sodium Chloride 100 ML IVC SCH (13:00)
--- NOTE | 2016-11-10 13:28 | Anesthesia Evaluation PreOp ---
Date of Encounter: 11/10/16 Time of Encounter: 07:15 - Past History Cardiac History: OR, Angina, HTN, Cardiac Stent Pulmonary History: Smoker Anesthesia History: No Prior Anesthetic Complications Alcohol Use: none Drug use: none Medications and Allergies Aspirin [Lo-Dose Aspirin EC] 81 mg PO DAILY 03/16/16 [History] Clopidogrel [Plavix] 75 mg PO DAILY 03/16/16 [History] Albuterol Sulfate [Proair Hfa] 2 puff IH Q4H PRN 11/04/16 [History] Atorvastatin [Lipitor] 40 mg PO HS 11/04/16 [History] Carvedilol 3.125 mg PO BID 11/04/16 [History] Famotidine [Pepcid] 40 mg PO HS 11/04/16 [History] Lisinopril [Zestril] 5 mg PO DAILY 11/04/16 [History] Nitroglycerin [Nitrostat] 0.4 mg SL AD PRN 11/04/16 [History] Ubidecarenone [Co Q10] 200 mg PO DAILY 11/04/16 [History] Allergies No Known Allergies Allergy (Verified 03/16/16 14:59) - Meds/Allergy Pre-op Review Medications Reviewed: Yes Allergies Reviewed: Yes Beta Blockers on Current Med List: Yes Anesthesia Results - Labs 11/10/16 11:35 11/10/16 11:35 Anesthesia Exam Vital Signs - Last 8 Hours Resp BP Pulse Ox 11/10/16 13:09 12 127/55 96 11/10/16 12:07 12 131/62 100 11/10/16 11:23 12 126/60 100 Intake and Output 11/09/16 11/10/16 11/10/16 23:59 07:59 15:59 Intake Total 1640 / 1640 250 / 250 100 / 100 Output Total 600 / 600 1000 / 1000 Balance 1040 / 1040 250 / 250 -900 / -900 Intake: IV Fluids 500 / 500 250 / 250 100 / 100 Heparin 25,000 UNIT/500 500 / 500 250 / 250 ML D5W 25,000 unit In 500 ml @ 12 UNIT/KG/HR 18. 507 mls/hr IVC .Q24H [facility] Rx#:[id number] Ancef Premix 2,000 MG/100 100 / 100 ML 2,000 mg In 100 ml @ 200 mls/hr IVPB PREOP ONE Rx#:[id number] Oral 1140 / 1140 Output: Urine 600 / 600 Estimated Blood Loss 500 / 500 Urine Amount (Catheter) 500 / 500 Other: Meal Dinner Percent of Meal Consumed 100% Weight 70.6 kg Patient Weight 11/10/16 23:59 Weight 70.6 kg - HEENT Pupil (Motor): EOMI Mallampati: I Teeth: Edentulous Denture Type: Upper: Complete, Lower: Complete Oral Opening: Greater than 3 - Cardiac Rhythm: Regular - Pulmonary Breath Sounds: bilateral Clear Anesthesia Assess/Plan ASA Score: 4 Modified Jeff Scale for Level of Consciousness: Cooperative, oriented, and tranquil Anesthetic Plan: General Monitoring Plan: Standard Monitors, A-Line, PAC, MARITA Recovery Plan: ICU (Postoperative mechanical ventilation.)
[2016-11-10] MEDS ORDERED: Tranexamic Acid 1,000 MG/10 ML VIAL ONE (15:27)
[2016-11-10 15:53] LABS: ABG Base Excess 3.4 mEq/L (-2.0 to 3.0); ABG HCO3 29.1 mEQ/L (21-27); ABG Oxygen Saturation 98 % (95-98); ABG PCO2 48 mmHg (35-45); ABG PO2 105 mmHg (85-104); ABG TCO2 30.6 mEq/L (20-26)
[2016-11-10 15:54] LABS: Blood Gas FiO2 30 %; Blood Gas PEEP 5 cm H2O; Blood Gas Respiration Rate 10; Blood Gas VT 600 cc
[2016-11-10 15:55] LABS: ABG PH 7.39 pH Units (7.32-7.45)
[2016-11-10] MEDS ORDERED: 0.9 % Sodium Chloride 500 ML ONE (16:08)
--- NOTE | 2016-11-10 16:43 | Anesthesia Evaluation Post Op ---
Date of Encounter: 11/10/16 Time of Encounter: 16:41 - Vital Signs Vital Signs: Vital Signs Temperature 97.5 F L 11/04/16 11:47 Temperature 97.6 F 11/10/16 04:38 Pulse Rate 62 11/10/16 04:38 Respiratory Rate 10 11/10/16 15:14 Blood Pressure 127/55 11/10/16 15:14 O2 Sat by Pulse Oximetry 99 11/10/16 15:14 - Airway Airway: Intubated (trial CPAP in anticipation of extubation) - Mental Status Mental Status: Alert & Oriented, Answers Appropriately (follows commands and moves all extremeties) - Nausea Vomiting Nausea Vomiting: Not Present - Hydration Hydration: NPO Notes: 11/10/16 16:45 Hemodynamically stable, await extubation. No anesthesthesia complication. Will Continue to follow
--- NOTE | 2016-11-10 17:10 | Electrocardiograph Report ---
[address] [place], [place] [address] Test Date: 2016-11-10 Pat Name: Rashi Pritchard Department: 109 Room: [facility] Gender: M Spa Receptionist: BROOKE : 1960 Requested By: Deb Garcia Order Number: [id number] Reading MD: Azra Sparrow Measurements Intervals [place] Rate: 71 P: 66 AK: 152 QRS: -47 QRSD: 122 T: 123 QT: 426 QTc: 449 Interpretive Statements SINUS RHYTHM RIGHT BUNDLE BRANCH BLOCK LEFT ANTERIOR FASCICULAR BLOCK MODERATE T-WAVE ABNORMALITY, CONSIDER LATERAL ISCHEMIA Electronically Signed On 11-10-2016 17:08:22 EDT by Azra Sparrow
[2016-11-10 17:14] LABS: Basophils % 0.1 %; Eosinophils % 0.1 %; Hematocrit 38.2 % (37.5-50.1); Hemoglobin 12.7 g/dL (12.9-16.9); Immature Granulocytes % 0.4 % (0-4); Lymphocytes # 0.5 K/mcL (0.6-4.6); Lymphocytes % 3.7 %; Mean Corpuscular HGB Conc 33.2 g/dL (31.6-35.5); Mean Corpuscular Hemoglobin 29.4 pg (28.0-33.3); Mean Corpuscular Volume 88.4 fL (83.0-100.0); Mean Platelet Volume 9.9 fL (9.4-12.4); Monocytes # 1.1 K/mcL (0.0-1.3); Monocytes % 7.8 %; Neutrophils # 12.2 K/mcL (1.6-8.9); Platelet Count 177 K/mcL (140-400); Red Blood Count 4.32 M/mcL (4.19-5.50); Red Cell Distribution Width 12.1 % (11.5-14.5); Segmented Neutrophils % 87.9 %
[2016-11-10 17:46] LABS: BUN/Creatinine Ratio 21 (6-26); Blood Urea Nitrogen 17 mg/dL (8-26); Calcium 8.3 mg/dL (8.6-10.8); Carbon Dioxide 28 mEq/L (19-29); Chloride 106 mEq/L (98-109); Glucose 141 mg/dL (70-99); Osmolality,Calculated 292 (280-300); Potassium 4.4 mEq/L (3.5-4.5); Sodium 139 mEq/L (136-145); eGFR For African Americans > 60 (> 60); eGFR For Non-African Americans > 60 (> 60)
[2016-11-10] MEDS: ceFAZolin 2,000 MG in D5% in Water 100 ML IVPB SCH (17:49)
[2016-11-10] MEDS: Aspirin 81 MG TAB.CHEW PO SCH (19:53)
[2016-11-10] MEDS: Isosorbide MONOnitrate (24 HR) 30 MG TAB.ER.24H PO SCH (19:53)
[2016-11-10] MEDS: niCARdipine 40 MG/200 ML MLS IVC SCH ×2 (19:54→20:55)
[2016-11-10] MEDS: Norepinephrine 4 MG in D5% in Water 250 ML IVC SCH (19:54)
[2016-11-10] MEDS: Famotidine 20 MG TABLET PO SCH (23:30)
[2016-11-11] MEDS: Nitroglycerin 25 MG/250 ML INFUS..BTL IVC SCH ×2 (00:17→12:19)
[2016-11-11] MEDS: ceFAZolin 2,000 MG in D5% in Water 100 ML IVPB SCH (00:22)
[2016-11-11] MEDS: *HR* Morphine 2 MG/ML SYRINGE IVP PRN ×2 (02:19→17:59)
[2016-11-11 04:11] LABS: Basophils % 0.1 %; Hematocrit 36.3 % (37.5-50.1); Hemoglobin 12.1 g/dL (12.9-16.9); Immature Granulocytes % 0.4 % (0-4); Lymphocytes # 0.8 K/mcL (0.6-4.6); Lymphocytes % 6.3 %; Mean Corpuscular HGB Conc 33.3 g/dL (31.6-35.5); Mean Corpuscular Hemoglobin 29.7 pg (28.0-33.3); Monocytes # 1.4 K/mcL (0.0-1.3); Monocytes % 10.7 %; Platelet Count 154 K/mcL (140-400); Red Blood Count 4.08 M/mcL (4.19-5.50); Red Cell Distribution Width 12.2 % (11.5-14.5); Segmented Neutrophils % 82.5 %
[2016-11-11 04:16] LABS: INR 1.3; Prothrombin Time 13.8 Seconds (9.4-12.1)
[2016-11-11 04:23] LABS: BUN/Creatinine Ratio 27 (6-26); Blood Urea Nitrogen 23 mg/dL (8-26); Calcium 8.6 mg/dL (8.6-10.8); Carbon Dioxide 27 mEq/L (19-29); Chloride 106 mEq/L (98-109); Glucose 139 mg/dL (70-99); Magnesium 2.1 mg/dL (1.6-2.6); Osmolality,Calculated 292 (280-300); Potassium 4.6 mEq/L (3.5-4.5); Sodium 138 mEq/L (136-145); eGFR For African Americans > 60 (> 60); eGFR For Non-African Americans > 60 (> 60)
[2016-11-11] MEDS: niCARdipine 40 MG/200 ML MLS IVC SCH ×2 (05:47→12:19)
[2016-11-11] MEDS: Ketorolac 15 MG/ML VIAL IVP SCH ×4 (05:48→23:45)
[2016-11-11] MEDS: Metoclopramide 10 MG/2 ML VIAL IVP SCH ×4 (05:48→23:46)
--- NOTE | 2016-11-11 07:33 | Cardiothoracic Progress Note ---
Date of Encounter: 11/11/16 Time of Encounter: 07:31 - Assessment and plan (1) STEMI (ST elevation myocardial infarction) Current Visit: No Status: Acute The patient has remained hemodynamically stable overnight. He is extubated and breathing comfortably. The arterial line, Torres catheter, and [place] catheter will be removed. He will be transferred to the stepdown unit when a bed is available. The assessment and plan as outlined above was discussed with the patient and/or family members who expressed understanding and agreement. All questions were answered. Qualifiers: Involved coronary artery: other anterior wall coronary artery Qualified Code(s): I21.09 - ST elevation (STEMI) myocardial infarction involving other coronary artery of anterior wall - Subjective Procedure(s) Performed: POD#1 S/P CABG3 Interval history: The patient is resting comfortably in his hospital bed. He has no complaints of chest pain. Vital Signs, Last 4 Hours Pulse Resp BP Pulse Ox 11/11/16 07:00 78 14 136/56 100 11/11/16 06:00 90 14 134/62 97 11/11/16 05:00 94 14 145/66 97 11/11/16 04:00 87 16 132/64 100 11/11/16 03:56 17 99 Oxgyen Flow Rate Oxygen Flow Rate (LPM) 2 Clinical Data, last 8 Hours Output, Chest Tube Drainage 0 Amount [Mediastinal #2] Output, Chest Tube Drainage 30 Amount [Mediastinal #2] Output, Chest Tube Drainage 10 Amount [Mediastinal #2] Output, Chest Tube Drainage 15 Amount [Mediastinal #2] Output, Chest Tube Drainage 0 Amount [Mediastinal #2] Output, Chest Tube Drainage 5 Amount [Mediastinal #2] Output, Chest Tube Drainage 0 Amount [Mediastinal #2] Output, Chest Tube Drainage 0 Amount [Mediastinal #2] Output, Chest Tube Drainage 0 Amount [Mediastinal #1] Output, Chest Tube Drainage 10 Amount [Mediastinal #1] Output, Chest Tube Drainage 10 Amount [Mediastinal #1] Output, Chest Tube Drainage 10 Amount [Mediastinal #1] Output, Chest Tube Drainage 0 Amount [Mediastinal #1] Output, Chest Tube Drainage 10 Amount [Mediastinal #1] Output, Chest Tube Drainage 25 Amount [Mediastinal #1] Output, Chest Tube Drainage 10 Amount [Mediastinal #1] Weight 11/09/16 11/10/16 11/11/16 23:59 23:59 23:59 Weight 70.6 kg 70.6 kg - Physical Examination General: Conversant, No Apparent Distress Neck: No JVD, Normal carotid pulses Cardiac: Reg Rate and Rhythm, Normal S1 and S2, No Murmur Incision: No signs of infection, Dry/intact dressing Sternum: Stable Chest tubes: Minimal drainage, Other (No air leak.) Lungs: Normal Breath Sounds, No Wheeze, Rales, Rhonchi Neuro: Alert and responsive, No focal deficits noted Vascular: Normal capillary refill Extremities: No Clubbing, No Cyanosis, No Edema - Labs 11/11/16 04:00 11/11/16 04:00 Lab Results, Last 24 hours 11/10/16 11/10/16 11/10/16 11:35 11:35 11:35 WBC 10.5 D Hgb 11.9 L Hct 35.3 L Plt Count 134 L INR 1.3 APTT 30.2 D Sodium 140 Potassium 3.8 Chloride 106 Carbon Dioxide 30 H BUN 15 Creatinine 0.80 Glucose 107 H Calcium 7.7 L D Magnesium 2.5 11/10/16 11/10/16 11/11/16 16:50 16:50 04:00 WBC 13.9 H 13.4 H Hgb 12.7 L 12.1 L Hct 38.2 36.3 L Plt Count 177 154 INR APTT Sodium 139 Potassium 4.4 Chloride 106 Carbon Dioxide 28 BUN 17 Creatinine 0.82 Glucose 141 H Calcium 8.3 L Magnesium 11/11/16 11/11/16 04:00 04:00 WBC Hgb Hct Plt Count INR 1.3 APTT 29.0 Sodium 138 Potassium 4.6 H Chloride 106 Carbon Dioxide 27 BUN 23 Creatinine 0.85 Glucose 139 H Calcium 8.6 Magnesium 2.1 - Imaging Chest Xray: image reviewed (No pneumothorax. Minimal bibasilar atelectasis.) - VTE Documentation of Mechanical Device: Intermittent pneumatic compression device Consult Discharge Plan - Plan Referrals: Suman Huang, CLOUD ENGINEER [Primary Care Provider] -
[2016-11-11] MEDS ORDERED: Aspirin Enteric Coated 81 MG Tablet PO SCH (09:00)
[2016-11-11] MEDS ORDERED: Furosemide 20 MG/2 ML VIAL IVP SCH (09:00)
[2016-11-11] MEDS: Isosorbide MONOnitrate (24 HR) 30 MG TAB.ER.24H PO SCH (09:44)
[2016-11-11] MEDS: Chlorhexidine Rinse 15 ML MOUTHWASH MM SCH ×2 (09:44→20:51)
[2016-11-11] MEDS: Pantoprazole 40 MG VIAL IVP SCH (09:44)
[2016-11-11] MEDS: Norepinephrine 4 MG in D5% in Water 250 ML IVC SCH (12:18)
[2016-11-11] MEDS: Insulin Human Regular 100 UNIT in 0.9 % Sodium Chloride 100 ML IVC SCH (12:19)
[2016-11-11] MEDS ORDERED: *HR* Dextrose 50 % in Water (Syg) 50 ML SYRINGE IVP PRN ×2 (14:42→14:46)
[2016-11-11] MEDS ORDERED: Acetaminophen 325 MG TABLET PO PRN (14:42)
[2016-11-11] MEDS ORDERED: *HR* Morphine 2 MG/ML SYRINGE IVP PRN (14:42)
[2016-11-11] MEDS ORDERED: Nitroglycerin 0.4 MG TAB.SUBL SL PRN (14:42)
[2016-11-11] MEDS ORDERED: Ondansetron 4 MG/2 ML VIAL IVP PRN (14:42)
[2016-11-11] MEDS ORDERED: D5% in Water 1,000 ML IVC PRN (14:46)
[2016-11-11] MEDS ORDERED: Dextrose Gel 15 GM PO PRN ×2 (14:46)
[2016-11-11] MEDS: *HR* OxyCODONE/APAP 5/325 TABLET PO PRN ×2 (17:08→21:02)
[2016-11-11] MEDS: *HR* Heparin 5,000 UNIT/ML VIAL SQ SCH (17:09)
[2016-11-11] MEDS: Insulin LISPRO 300 UNITS/3 ML VIAL SQ SCH ×2 (17:09→20:54)
[2016-11-11] MEDS: Furosemide 20 MG/2 ML VIAL IVP SCH (20:52)
[2016-11-12] MEDS: *HR* OxyCODONE/APAP 5/325 TABLET PO PRN ×3 (04:26→21:59)
[2016-11-12] MEDS: Ketorolac 15 MG/ML VIAL IVP SCH ×3 (05:03→17:38)
[2016-11-12] MEDS: Metoclopramide 10 MG/2 ML VIAL IVP SCH ×3 (05:03→17:38)
[2016-11-12] MEDS: *HR* Heparin 5,000 UNIT/ML VIAL SQ SCH ×2 (05:03→17:37)
[2016-11-12 05:21] LABS: Basophils % 0.3 %; Eosinophils % 0.3 %; Hemoglobin 11.4 g/dL (12.9-16.9); Immature Granulocytes % 0.7 % (0-4); Lymphocytes # 1.6 K/mcL (0.6-4.6); Lymphocytes % 13.3 %; Mean Corpuscular HGB Conc 33.5 g/dL (31.6-35.5); Mean Corpuscular Hemoglobin 30.4 pg (28.0-33.3); Mean Corpuscular Volume 90.7 fL (83.0-100.0); Mean Platelet Volume 10.6 fL (9.4-12.4); Monocytes # 1.3 K/mcL (0.0-1.3); Monocytes % 10.7 %; Neutrophils # 8.8 K/mcL (1.6-8.9); Platelet Count 150 K/mcL (140-400); Red Blood Count 3.75 M/mcL (4.19-5.50); Red Cell Distribution Width 12.6 % (11.5-14.5); Segmented Neutrophils % 74.7 %
[2016-11-12 05:48] LABS: BUN/Creatinine Ratio 36 (6-26); Blood Urea Nitrogen 29 mg/dL (8-26); Carbon Dioxide 25 mEq/L (19-29); Chloride 102 mEq/L (98-109); Glucose 99 mg/dL (70-99); Osmolality,Calculated 292 (280-300); Potassium 4.3 mEq/L (3.5-4.5); Sodium 138 mEq/L (136-145); eGFR For African Americans > 60 (> 60); eGFR For Non-African Americans > 60 (> 60)
[2016-11-12] MEDS: Insulin LISPRO 300 UNITS/3 ML VIAL SQ SCH ×4 (08:19→21:59)
[2016-11-12] MEDS: Chlorhexidine Rinse 15 ML MOUTHWASH MM SCH ×2 (08:31→21:59)
[2016-11-12] MEDS: Pantoprazole 40 MG VIAL IVP SCH (08:31)
[2016-11-12] MEDS: Furosemide 20 MG/2 ML VIAL IVP SCH ×2 (08:32→21:59)
[2016-11-12] MEDS: *HR* Morphine 2 MG/ML SYRINGE IVP PRN (08:36)
[2016-11-12] MEDS: Aspirin Enteric Coated 81 MG Tablet PO SCH (08:52)
[2016-11-12] MEDS: Isosorbide MONOnitrate (24 HR) 30 MG TAB.ER.24H PO SCH (08:52)
--- NOTE | 2016-11-12 09:16 | Cardiothoracic Progress Note ---
Date of Encounter: 11/12/16 Time of Encounter: 09:14 - Assessment and plan (1) STEMI (ST elevation myocardial infarction) Current Visit: No Status: Acute The patient is recovering well from his CABG3. The chest tube removed this morning. The patient will begin ambulating today. The assessment and plan as outlined above was discussed with the patient and/or family members who expressed understanding and agreement. All questions were answered. Qualifiers: Involved coronary artery: other anterior wall coronary artery Qualified Code(s): I21.09 - ST elevation (STEMI) myocardial infarction involving other coronary artery of anterior wall - Subjective Procedure(s) Performed: POD#2 S/P CABG3 Interval history: The patient is resting comfortably in his hospital bed. He has no complaints. He was able to sit in a chair for 1-1/2 hours last night without difficulty. Vital Signs, Last 4 Hours Temp Pulse Resp BP Pulse Ox 11/12/16 08:02 16 95 11/12/16 07:57 97.7 F 76 18 114/67 93 11/12/16 07:11 98.1 F 77 16 118/68 92 Oxgyen Flow Rate Oxygen Flow Rate (LPM) 0 Clinical Data, last 8 Hours Output, Chest Tube Drainage 80 Amount [Mediastinal #2] Output, Chest Tube Drainage 12 Amount [Mediastinal #1] Weight 11/10/16 11/11/16 11/12/16 23:59 23:59 23:59 Weight 70.6 kg 72.6 kg - Physical Examination General: Conversant, No Apparent Distress Neck: No JVD, Normal carotid pulses Cardiac: Reg Rate and Rhythm, Normal S1 and S2, No Murmur Incision: No signs of infection, Dry/intact dressing Sternum: Stable Chest tubes: Minimal drainage, Other (No air leak.) Pacing Wires: In place Lungs: Normal Breath Sounds, No Wheeze, Rales, Rhonchi Neuro: Alert and responsive, No focal deficits noted Vascular: Normal capillary refill Extremities: No Clubbing, No Cyanosis, No Edema - Labs 11/12/16 04:20 11/12/16 04:20 Lab Results, Last 24 hours 11/12/16 11/12/16 04:20 04:20 WBC 11.8 H Hgb 11.4 L Hct 34.0 L Plt Count 150 Sodium 138 Potassium 4.3 Chloride 102 Carbon Dioxide 25 BUN 29 H Creatinine 0.81 Glucose 99 Calcium 9.0 - Imaging Chest Xray: image reviewed (No pneumothorax. Minimal left lower lobe atelectasis /infiltrates.) - VTE Documentation of Mechanical Device: Graduated compression elastic hosiery Consult Discharge Plan - Plan Referrals: Suman Huang, SHIM PLUG CUTTER [Primary Care Provider] - 11/24/16 11:00 am (Please arrive 45 minutes before appt to fill out paperwork.)
[2016-11-13] MEDS: Ketorolac 15 MG/ML VIAL IVP SCH ×4 (00:53→17:11)
[2016-11-13] MEDS: Metoclopramide 10 MG/2 ML VIAL IVP SCH ×3 (00:53→13:14)
[2016-11-13] MEDS: *HR* OxyCODONE/APAP 5/325 TABLET PO PRN ×2 (03:08→20:24)
[2016-11-13 04:36] LABS: Basophils % 0.4 %; Eosinophils % 0.5 %; Hematocrit 31.5 % (37.5-50.1); Hemoglobin 10.6 g/dL (12.9-16.9); Immature Granulocytes % 0.8 % (0-4); Lymphocytes # 1.5 K/mcL (0.6-4.6); Lymphocytes % 17.8 %; Mean Corpuscular HGB Conc 33.7 g/dL (31.6-35.5); Mean Corpuscular Hemoglobin 29.7 pg (28.0-33.3); Mean Corpuscular Volume 88.2 fL (83.0-100.0); Mean Platelet Volume 9.6 fL (9.4-12.4); Monocytes # 0.9 K/mcL (0.0-1.3); Monocytes % 10.1 %; Platelet Count 161 K/mcL (140-400); Red Blood Count 3.57 M/mcL (4.19-5.50); Red Cell Distribution Width 12.4 % (11.5-14.5); Segmented Neutrophils % 70.4 %
[2016-11-13 04:55] LABS: BUN/Creatinine Ratio 39 (6-26); Blood Urea Nitrogen 32 mg/dL (8-26); Calcium 8.9 mg/dL (8.6-10.8); Carbon Dioxide 32 mEq/L (19-29); Chloride 101 mEq/L (98-109); Glucose 93 mg/dL (70-99); Osmolality,Calculated 295 (280-300); Potassium 4.4 mEq/L (3.5-4.5); Sodium 139 mEq/L (136-145); eGFR For African Americans > 60 (> 60); eGFR For Non-African Americans > 60 (> 60)
[2016-11-13] MEDS: *HR* Heparin 5,000 UNIT/ML VIAL SQ SCH ×2 (05:58→20:25)
[2016-11-13] MEDS: *HR* Morphine 2 MG/ML SYRINGE IVP PRN (06:01)
--- NOTE | 2016-11-13 07:31 | Cardiothoracic Progress Note ---
Date of Encounter: 11/13/16 Time of Encounter: 07:29 - Assessment and plan (1) STEMI (ST elevation myocardial infarction) Current Visit: No Status: Acute We will ambulate the patient today and hopefully discharge him tomorrow. Qualifiers: Involved coronary artery: other anterior wall coronary artery Qualified Code(s): I21.09 - ST elevation (STEMI) myocardial infarction involving other coronary artery of anterior wall - Subjective Interval history: The patient has no complaints and is anxious to go home. Vital Signs, Last 4 Hours Resp Pulse Ox 11/13/16 04:43 16 96 Oxgyen Flow Rate Oxygen Flow Rate (LPM) 0 Clinical Data, last 8 Hours Output, Urine Amount 575 Output, Urine Amount 480 Weight 11/11/16 11/12/16 11/13/16 23:59 23:59 23:59 Weight 72.6 kg 71 kg Lungs are clear to percussion and auscultation. Heart is in a normal sinus rhythm. All incisions are healing well without signs of infection and the sternum is stable. - Labs 11/13/16 04:20 11/13/16 04:20 Lab Results, Last 24 hours 11/13/16 11/13/16 04:20 04:20 WBC 8.5 Hgb 10.6 L Hct 31.5 L Plt Count 161 Sodium 139 Potassium 4.4 Chloride 101 Carbon Dioxide 32 H BUN 32 H Creatinine 0.83 Glucose 93 Calcium 8.9 - VTE Documentation of Mechanical Device: Graduated compression elastic hosiery Consult Discharge Plan - Plan Referrals: Suman Huang, HOME BASED ASSISTANT [Primary Care Provider] - 11/24/16 11:00 am (Please arrive 45 minutes before appt to fill out paperwork.)
[2016-11-13] MEDS: Insulin LISPRO 300 UNITS/3 ML VIAL SQ SCH ×4 (08:04→22:16)
[2016-11-13] MEDS: Chlorhexidine Rinse 15 ML MOUTHWASH MM SCH ×2 (08:12→20:26)
[2016-11-13] MEDS: Furosemide 20 MG/2 ML VIAL IVP SCH ×2 (08:13→20:26)
[2016-11-13] MEDS: Aspirin Enteric Coated 81 MG Tablet PO SCH (08:13)
[2016-11-13] MEDS: Pantoprazole 40 MG VIAL IVP SCH (08:13)
[2016-11-13] MEDS: Isosorbide MONOnitrate (24 HR) 30 MG TAB.ER.24H PO SCH (08:13)
[2016-11-14] MEDS: *HR* OxyCODONE/APAP 5/325 TABLET PO PRN (00:26)
[2016-11-14] MEDS: Ketorolac 15 MG/ML VIAL IVP SCH ×2 (00:26→06:22)
[2016-11-14] MEDS: *HR* Morphine 2 MG/ML SYRINGE IVP PRN (03:24)
[2016-11-14] MEDS: *HR* Heparin 5,000 UNIT/ML VIAL SQ SCH (06:23)
[2016-11-14 06:53] VITALS: BP 118/74
--- NOTE | 2016-11-14 08:48 | Discharge Summary ---
Date of Encounter: 11/14/16 Time of Encounter: 08:41 - Discharge Diagnosis (1) STEMI (ST elevation myocardial infarction) Priority: Primary Status: Acute Qualifiers: Involved coronary artery: other anterior wall coronary artery Qualified Code(s): I21.09 - ST elevation (STEMI) myocardial infarction involving other coronary artery of anterior wall - Discharge Medications Prescriptions: OxyCODONE/APAP 5/325 [Percocet 5/325 MG] 1 each PO Q4HR PRN #30 tablet PRN Reason: Severe Pain Metoprolol [Lopressor] 50 mg PO BID #60 tablet Home Medications: Aspirin [Lo-Dose Aspirin EC] 81 mg PO DAILY 03/16/16 [History] Clopidogrel [Plavix] 75 mg PO DAILY 03/16/16 [History] Albuterol Sulfate [Proair Hfa] 2 puff IH Q4H PRN 11/04/16 [History] Atorvastatin [Lipitor] 40 mg PO HS 11/04/16 [History] Famotidine [Pepcid] 40 mg PO HS 11/04/16 [History] Nitroglycerin [Nitrostat] 0.4 mg SL AD PRN 11/04/16 [History] Ubidecarenone [Co Q10] 200 mg PO DAILY 11/04/16 [History] Metoprolol [Lopressor] 50 mg PO BID #60 tablet 11/14/16 [Rx] OxyCODONE/APAP 5/325 [Percocet 5/325 MG] 1 each PO Q4HR PRN #30 tablet 11/14/16 [Rx] Allergies/Adverse Reactions: Allergies No Known Allergies Allergy (Verified 03/16/16 14:59) Date of admission: 11/04/16 09:09 Primary care physician: Suman Huang CNP Consults: 11/04/16 09:52 Consult to Nurse Navigator [CONS] Routine Comment: 11/04/16 09:58 Consult to Cardiothoracic Surgery [CONS] Routine Consulting Provider: Cardiothoracic Surgery Giulia Reason for Consult: cabg Call Completed: Yes 11/04/16 15:40 Consult to Well Tester [CONS] Routine Reason for SW Consult: Patient has financial concerns regarding his pending Open Heart Surgery on 11/10/16. 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 11/09/16 08:46 Consult to Well Tester [CONS] Routine Reason for SW Consult: patient wants to discuss disability 11/10/16 11:21 Consult to Cardiac Rehabilitation-Phase1 [CONS] Routine Comment: Reason for Consult: Post open heart Call Completed: Yes Procedure(s) Performed: November 10, 2016. Coronary artery bypass grafting 3, utilizing the left internal mammary artery. Discharging clinician: Georges Wright Anticipated date of discharge: 11/14/16 - Patient Status Disposition: Home, Self-Care Condition: Fair Functional capacity at discharge: independent ambulation Overall status at discharge: patient is progressing back to baseline - Discharge Instructions Follow Up With: Suman Huang CNP [Primary Care Provider] - 11/24/16 11:00 am (Please arrive 45 minutes before appt to fill out paperwork.) - Hospital Course Hospital course: Mr. Pritchard is a 56 year old male The patient is a 56-year-old gentleman with a history of hypertension, hypercholesterolemia and coronary artery disease. He presented with a myocardial infarction. Cardiac catheterization revealed severe coronary artery disease and he was referred for surgery. He had received Plavix and this was stopped for 5 days prior to surgery. On November 10, 2016, my partner Dr. Garcia took the patient to the operating room for coronary artery bypass grafting 3, utilizing the left internal mammary artery. The patient tolerated the procedure well. On November 11, he was transferred to the floor. Chest tubes were removed. Pacing wires were also removed. The patient otherwise did well and was discharged on November 14. At that time he was afebrile. Lungs were clear to percussion and auscultation. Heart was in a normal sinus rhythm. All incisions were healing well without signs of infection and the sternum was stable. Discharge medications are on the med rec and include Percocet for pain. I did check the [place] automated Rx reporting system. He was given a one-week supply and he was postoperative. Appropriate precautions were given. He was to return to his previous and regular diet. He was to avoid heavy lifting for a total of 3 months after surgery, but to walk as much as possible. He was to avoid driving for 1 month after surgery. He was to follow up and see Dr. Garcia in 4 weeks as directed. He was to follow up and see his bilingual teacher aide and family doctor as directed. He was to call sooner for any difficulties. - Time Spent with Patient Total time spent providing and/or coordinating discharge services: Physical Examination Vital Signs, Last 4 Hours Temp Pulse Resp BP Pulse Ox 11/14/16 06:51 98.9 F 77 16 118/74 96 11/14/16 04:57 98.2 F 90 13 106/82 93 Open Heart Registry Aspirin Cont/Prescribed at DC: Yes Beta Robin Cont/Prescribed at DC: Yes Statin Cont/Prescribed at DC: Yes NATALIE/ARB Cont/Prescribed at DC: Not indicated - VTE Documentation of Mechanical Device: Graduated compression elastic hosiery
== END 2016-11-14 10:18 | disposition home or self-care (01) | DRG 165 ==
LOC: ICNU 09:09 → 2NNU 11-06 18:22 → ICNU 11-10 08:06 → 2NNU 11-11 13:07 → ICNU 11-11 14:12 → 2NNU 11-11 16:43
PROVIDERS: ADMIT Emergency Medicine; ATTEND Thoracic Surgery (Cardiothoracic Vascular Surgery)